=== PATIENT | female | born 1945 | race Caucasian/White ===

== ENCOUNTER → 2016-10-03 | Outpatient (CLI) | payer OTHER, MEDICARE | LOC: MMPC 11:11 | PROVIDERS: ATTEND Nurse Practitioner Family | DX: M54.42 Lumbago with sciatica, left side (principal); G57.30 Lesion of lateral popliteal nerve, unspecified lower limb; J43.2 Centrilobular emphysema | CPT/HCPCS: 99214; G0463 ==

== ENCOUNTER → 2016-11-10 | Outpatient (CLI) | payer OTHER, MEDICARE ==
--- NOTE | 2016-11-13 10:34 | DI ---
AP PELVIS and LEFT HIP, 11/10/2016 9:32 AM: Clinical History: Left hip pain. Previous Exam: 02/26/2012. There is no soft tissue abnormality. The bony structures of the pelvis show an old avulsion fracture of the left parasymphyseal region along the superior margin. This was not evident on the previous christy dy from 02/26/2012. 2 views of the left hip show the patient to be status post revision of the previou s total hip replacement. The prosthetic device articulates normally. There is no evidence of loosenin g of the prosthesis. The patient is also status post total right hip replacement. Readin. Status post total left hip replacement and this is a revision from the previous exam of 02/26/2012 . The prosthetic device articulates normally and there is no evidence of loosening of the prosthetic left hip. 2. There is an old avulsion fracture of the superior aspect of the left parasymphyseal region that w as not evident on the previous study of 02/26/2012.
== END ==
LOC: ORTHO 09:43
PROVIDERS: ATTEND Orthopaedic Surgery
DX: M25.552 Pain in left hip (principal); S32.502A Unspecified fracture of left pubis, initial encounter for closed fracture; Z96.642 Presence of left artificial hip joint
CPT/HCPCS: 73502; 99203; G0463

== ENCOUNTER 2016-11-24 11:50 | Emergency (ER) | payer OTHER, MEDICARE ==
[2016-11-24 12:20] VITALS: RESP 18; TEMP 98.5
[2016-11-24] MEDS: NORMAL SALINE 10 ML SYRINGE FLUSH IVP PRN ×2 (12:25→12:59)
[2016-11-24 12:37] LABS: BASOPHILS # (AUTO) 0 10*3/UL; BASOPHILS % (AUTO) 0 % (0-1); EOSINOPHILS % (AUTO) 0.1 % (0-8); HEMATOCRIT 32.7 % (37.0-47.0); HEMOGLOBIN 10.9 g/dL (12.0-16.0); IMM GRAN % (AUTO) 0.3 % (0-5); IMM GRAN# (AUTO) 0.04 10*3/UL; LYMPHOCYTES % (AUTO) 8.1 % (10-50); MEAN CORPUSCULAR HEMOGLOBIN 32.4 PG (27-31); MEAN CORPUSCULAR HGB CONC 33.3 g/dL (33-37); MEAN PLATELET VOLUME 8.1 FL (7.4-12.2); MONOCYTES # (AUTO) 1.75 10*3/UL (0.3-0.8); MONOCYTES % (AUTO) 12.9 % (5-15); NEUTROPHILS # (AUTO) 10.61 10*3/UL; NEUTROPHILS % (AUTO) 78.6 % (50-80); RDW COEFFICIENT OF VARIATION 13.7 % (11.5-14.5); RED BLOOD COUNT 3.36 10^6/uL (4.20-5.40); WHITE BLOOD COUNT 13.52 10^3/uL (4.8-10.8)
[2016-11-24 12:41] LABS: PLATELET MORPHOLOGY COMMENT NORMAL MORPHOLOGY (NORM)
[2016-11-24 12:52] LABS: ASPARTATE AMINO TRANSFERASE 19 IU/L (8-39); BLOOD UREA NITROGEN 20 mg/dL (7-22); CALCIUM 9.2 mg/dL (8.7-10.7); CHLORIDE 92 meq/L (98-112); CREATININE 0.8 mg/dL (0.50-1.20); EST GLOMERULAR FILTRATION > 60 (>60 ml/min/1.73m(2)); GLUCOSE 103 mg/dL (78-110); POTASSIUM 3.9 meq/L (3.8-5.2); SODIUM 129 meq/L (135-145)
[2016-11-24] MEDS: HYDROmorphone 2 MG/1 ML IVP ONE ×2 (12:58→13:29)
--- NOTE | 2016-11-24 18:34 | PDOC ---
Hip Injury/Pain HPI - General Chief Complaint: Lower Extremity Problem/Injury Stated Complaint: LEFT HIP AND PELVIS PAIN Date Seen by Provider: 11/24/16 Time Seen by Provider: 11:50 Source: POSITIVE: Patient Exam Limitations: POSITIVE: No limitations Nurse's Notes Reviewed & Considered: Yes - History of Present Illness Initial Comments: The patient is a 71-year-old female. She complains of pain to the left hip and left knee for the past 2 weeks. The pain has worsened over the past 2 days. She states that she was diagnosed with "a broken bone in my pelvis"2 weeks ago by her orthopedist. States she injured her left hip when she stepped onto his and even surface and lost her balance, although she did not fall. Patient is had a right hip replacement and 2 left hip replacements. She has a history of tobacco abuse and states she stopped smoking 6 months ago. She has a history of chronic musculoskeletal pain for which she receives fentanyl patches, 75 g every 3 days. She has no paresthesias. No sensory or motor symptoms. She has a wheeled walker at home which she uses to assist in her ambulation and she states she also ambulates with a cane. Have you received a tetanus shot in the past 10 years?: Unknown Location: Left Hip Timing: REPORTS: Gradual Duration: >1 week Severity: Moderate Location at Time of Onset: REPORTS: Home Context: REPORTS: Other (Stumbled but did not fall 2 weeks ago) Concurrent Injuries: DENIES: Neck, Head, Back, Chest, Abdomen, Extremities, Face , Other Quality: REPORTS: "Pain", Sharpness Modifying Factors: REPORTS: Walking Symptoms Prior to Fall: DENIES: Fever, Chills, Diaphoresis, Diaphoresis, Chest Pain, Weakness, Rapid Heart Rate, Nausea, Vomiting, Diarrhea, Dizziness, Light- Headedness, Headache, Seizure, Other Subsequent Symptoms: DENIES: Sensory Loss, Motor Loss, Numbness, Weakness, Bowel / Bladder Problems, Other Similar Symptoms Previously: Yes (as above) Recent Care Received: REPORTS: Denies (Seen by her orthopedist 2 weeks ago and was diagnosed with a "broken bone in my left pelvis"), Recently Seen, Treated by MD Any Prior Injuries Related to Current Complaint?: Yes (as above) - Patient Home Medications Home Medications: Home Medications Calcium Carbonate [Natural Calcium] 600 mg PO BID 01/14/13 Cholecalciferol (Vitamin D3) [Vitamin D-3] 1 cap PO DAILY #0 cap 01/14/13 Fexofenadine HCl 1 tab PO QD 01/14/13 Gabapentin 1 cap PO QHS #30 cap 06/16/16 Meloxicam 1 tab PO DAILY PRN #30 tab 06/16/16 Albuterol/Ipratrop Neb Soln [Duoneb Neb Soln] 1 inh IH TID #90 each 08/23/16 Albuterol Sulfate [Proair Hfa] 1 - 2 puff INH Q4-6H PRN #1 inhaler 10/03/16 Fluticasone Furoate [Arnuity Ellipta] 1 puff INH QD #30 puff 10/03/16 Fentanyl 1 mcg TRANSDERM Q72H #10 patch 11/20/16 HYDROcodone/APAP 5/325 Tab [[place] 5/325 Tab] 1 each PO Q6H PRN #25 tablet LORazepam Tab [Ativan Tab] 1 mg PO Q6H PRN #25 tablet 11/24/16 - Patient Allergies Allergies/Adverse Reactions: Allergies Allergy/AdvReac Type Severity Reaction Status Date / Time Penicillins Allergy Severe Anaphylaxis Verified 11/24/16 11:54 Sulfa (Sulfonamide Allergy Intermediate RASH Verified 11/24/16 11:54 Antibiotics) alendronate sodium AdvReac Intermediate NOT Verified 11/24/16 11:54 [From Fosamax] APPLICABLE Past Medical History - heen HEENT History: Dentures/Partials, Other (please comment) Additional HEENT History: WEARS GLASSES Cardiovascular History: Denies History Respiratory History: COPD, Snoring Additional Respiratory History: QUIT SMOKING 06/2016 Gastrointestinal History: Denies History Genitourinary History: Denies History Endocrine History: Denies History Musculoskeletal History: Arthritis, Osteoporosis, Back Pain, Other (please comment) Prosthesis or Implant: Yes (RIGHT HIP HARDWARE) Additional Musculoskeletal History: CHRONIC LEFT HIP PAIN. L PELVIC FRACTURE Neurological History: Migraines Blood Disorders: Denies History Psychiatric History: Depression History of Sexually Transmitted Diseases: No Cancer History: Denies History In Past Year Been Physically Harmed or Verbally Threatened: No History of MDRO: No History of Other Communicable Diseases: No Tobacco Use: Former Smoker Alcohol Use: Rarely Substance Use Type: None Previous Surgical History: Yes Type / Date of Surgery: LEFT HIP SURGERY X2, RIGHT HIP REPLACEMENT, LEFT FOOT SURGERY, FULL HYSTERECTOMY Anesthesia Reactions: No Malignant Hyperthermia: No Significant Family History: No pertinent family hx Past Medical History Reviewed: Reviewed - No Changes ROS - Limitations ROS Limitations: No Limitations Constitution: REPORTS: Denies Symptoms Cardiovascular: REPORTS: Denies Cardiac Symptoms Respiratory: REPORTS: Denies Resp Symptoms Neurological: REPORTS: Denies Neuro Symptoms Gastrointestinal: REPORTS: Denies GI Symptoms Endocrine: REPORTS: Denies Symptoms Musculoskeletal: REPORTS: Joint Pain (Left hip and left knee), Recent Injury ( As above) Genitourinary: REPORTS: Denies Symptoms Eyes: REPORTS: Denies Symptoms ENT: REPORTS: Denies Symptoms Skin: REPORTS: Denies Skin Symptoms Lympathic: REPORTS: Denies Lympathic Symptoms Immunologic: POSITIVE: Denies Symptoms Psychiatric: POSITIVE: Anxiety Hip Injury / Pain Exam - General Appearance General Appearance: POSITIVE: Alert, Cooperative, Anxious (Very anxious), Moderate Distress - Lower Extremity Extremities: POSITIVE: Normal ROM, No Pedal Edema, No Obvious Injury to Knee, No Deformity to Knee, Normal Tendon Exam, Hip Pain on Leg Movement (Left), Hip/ Knee Tenderness (Some tenderness on direct palpation anterior aspect of left hip and anterior aspect of left knee). NEGATIVE: Shortening of Leg, External Rotation of Leg, Pedal Edema, Ecchymosis, Erythema, Soft Tissue Injury, Positive Chantel's Sign - HEENT HEENT: POSITIVE: Head Inspection Nml, Eyes Inspection Nml, Ears Inspection Nml, Nose Inspection Nml, Oral/Dental Inspect. Nml, Pharynx Inspect. Nml, PERRL, EOMI - Neck/Back Neck: POSITIVE: Normal Inspection, Non-Tender Back: POSITIVE: Normal Inspection, No CVA Tenderness, Non Tender, Painless ROM, No Vertebral Tenderness - Respiratory / CVS Cardiovascular: POSITIVE: Regular Rate and Rhythm, Heart Sounds Normal, Equal Pulses, Strong Pulses, No Murmur, No Gallop, No JVD, No Pulse Deficit Respiratory: POSITIVE: Chest Non Tender, No Ecchymosis, Breath Sounds Normal, No Respiratory Distress Peripheral Pulses: Radial (R): 2+, Radial (L): 2+, Dorsalis-pedis (R): 2+, Dorsalis-pedis (L): 2+ - Abdomen Abdomen: Soft: (All Quadrants), Normal Bowel Sounds: (All Quadrants), Denies Tenderness: (All Quadrants), No Splenomegaly: (All Quadrants), No Hepatomegaly: (All Quadrants), No Guarding: (All Quadrants), No Rebound: (All Quadrants), No Palpable Pulse: (All Quadrants), No Palpabale Mass: (All Quadrants), No Distention: (All Quadrants), No Rigidity: (All Quadrants) - Skin Skin: POSITIVE: Color Normal, No Rash, Warm, Dry, Normal Palpation - Neuro/Psych Neuro / Psych: POSITIVE: Oriented x 3, Neuro Grossly Intact, Mood Appropriate, Affect Appropriate Images - Complete Complete: 1 - Discomfort on palpation 2 - Discomfort on palpation Hip Injury / Pain Progress - Results Reviewed by me Xrays/CTs/US Reviewed by me: Yes Discussed with Radiologist: Yes Radiology Findings: Diffuse osteoporosis. X-ray of left knee normal. CT scan without contrast of left hip shows a left parasymphyseal fracture with some associated hematoma. There may also be a fracture of the sacral wing on the right Lab Results Reviewed: Yes Lab Results:: Laboratory Results 11/24/16 11/24/16 Range/Units 12:25 12:33 WBC 13.52 H (4.8-10.8) 10^3/uL RBC 3.36 L (4.20-5.40) 10^6/uL Hgb 10.9 L (12.0-16.0) g/dL Hct 32.7 L (37.0-47.0) % MCV 97.3 (81-99) FL MCH 32.4 H (27-31) PG MCHC 33.3 (33-37) g/dL RDW Std Deviation 46.5 (39-50) fL RDW Coeff of El 13.7 (11.5-14.5) % Plt Count 245 (140-350) 10*3/uL MPV 8.1 (7.4-12.2) FL Immature Gran % (Auto) 0.3 (0-5) % Neut % (Auto) 78.6 (50-80) % Lymph % (Auto) 8.1 L (10-50) % Harris % (Auto) 12.9 (5-15) % Eos % (Auto) 0.1 (0-8) % Baso % (Auto) 0 (0-1) % Immature Gran # (Auto) 0.04 10*3/UL Neut # (Auto) 10.61 10*3/UL Lymph # (Auto) 1.10 10*3/uL Harris # (Auto) 1.75 H (0.3-0.8) 10*3/UL Eos # (Auto) 0.02 10*3/UL Baso # (Auto) 0 10*3/UL WBC Morphology Comment Normal morphology (NORM) Plt Morphology Comment Normal morphology (NORM) RBC Morph Comment Normal morphology (NORM) D-Dimer 0.58 (0.00-0.59) mg/L Sodium 129 L (135-145) meq/L Potassium 3.9 (3.8-5.2) meq/L Chloride 92 L (98-112) meq/L Carbon Dioxide 25 (23-33) meq/L Anion Gap 12 (5-20) BUN 20 (7-22) mg/dL Creatinine 0.8 (0.50-1.20) mg/dL Estimated GFR > 60 (>60 ml/min/1.73m(2)) BUN/Creatinine Ratio 25.00 H (6-20) Glucose 103 (78-110) mg/dL Calculated Osmolality 270.0 (267-292) mOsm/kg Calcium 9.2 (8.7-10.7) mg/dL Total Bilirubin 1.0 (0.3-1.2) mg/dL AST 19 (8-39) IU/L ALT 22 (9-52) IU/L Alkaline Phosphatase 107 (38-126) IU/L Total Creatine Kinase 64 (30-136) IU/L C-Reactive Protein 24.0 H (0.0-0.9) mg/dL Total Protein 7.0 (6.1-8.0) g/dL Albumin 4.0 (3.5-4.8) g/dL Globulin 3.0 (2.50-4.10) g/dL Albumin/Globulin Ratio 1.30 (1.3-2.0) mg/g - Patient's Progress Pain Medication Addressed: POSITIVE: Yes (Patient given 2 mg of Dilaudid IV in the emergency room with good effect. Patient discharged on hydrocodone/APAP, one every 6 hours and Ativan one every 6 hours as necessary for anxiety) School/Work Release Addressed: POSITIVE: Yes (Patient advised that she probably will not be able to return to work for several weeks) Re-Examine Time: 14:57 Re-Examine Comment: Patient able to bear weight but gait is antalgic Status: POSITIVE: Unchanged, Re-Examined - Consult Counseled: POSITIVE: Patient, Family, RE: Lab Results, RE: Radiology Results, RE : DX, RE: Need for F/U Patient Care Time - Estimated PCT Patient Care Time (In Minutes): 45 Vital Signs - Recent Vital Signs Vital Signs: Vital Signs (Last 8 hours) Temp Pulse Resp BP Pulse Ox 11/24/16 12:08 98.5 F 93 18 152/89 92 - VS Reviewed Vital Signs Reviewed: Yes Discharge Clinical Impression: Pubic ramus fracture, Anxiety Discharge Disposition: Discharged to Home Condition: Fair Prescriptions / Orders: LORazepam Tab [Ativan Tab] 1 mg PO Q6H PRN #25 tablet PRN Reason: Anxiety HYDROcodone/APAP 5/325 Tab [[place] 5/325 Tab] 1 each PO Q6H PRN #25 tablet PRN Reason: Pain Patient Instructions Given at Discharge: Pelvic Avulsion Fractures in Adults ( ED), Osteoporosis (ED), Anxiety (ED) Additional Instructions: You have a fracture of your pelvic bone on the left near structure known as the symphysis pubis. This is a painful injury, but it does not require any surgery. It takes a long time to heal, especially in a woman with thinning of the bones (osteoporosis), such as yourself. In addition to your fentanyl patch which she will apply every 72 hours, you can augment this with hydrocodone, one every 6 hours, as necessary for pain. I believe you also have an underlying anxiety disorder, which is exacerbated by your present injury. Try Ativan, one every 6 hours as necessary for anxiety. I'm glad you have stop smoking and please do not resume this habit. Weightbearing as tolerated. Use your wheeled walker and cane as necessary. Follow-up with your orthopedist. Return here anytime if condition worsens. Follow Up With: LUANA DIAZ [Primary Care Provider] - (Instructions as above. Follow-up with your orthopedist. Return here anytime if condition worsens.)
--- NOTE | 2016-11-24 22:47 | DI ---
LEFT KNEE, 11/24/2016 1:31 PM: Clinical History: Left knee pain. Previous Exam: None at this facility. 2 views are submitted. The patient could not flex her knee for the sunrise projection. There is no ac false pass soft tissue, osseous, or joint abnormality. There is osteoporosis. Readin. Normal left knee exam. 2. Osteoporosis.
--- NOTE | 2016-11-25 11:42 | DI ---
CT PELVIS SCAN WITHOUT IV CONTRAST, 11/24/2016 12:20 PM : Clinical History: Left hip pain. Status post bilateral total hip replacements. Previous Exam: None at this facility. Scans are performed from just superior to the umbilicus to the inferior margin of the each prosthetic femoral shank without IV contrast. Sagittal and coronal images are generated both with bone enhancem ent and soft tissue algorithms. Scans through the lower abdomen and pelvis show no masses or abnormal fluid collections. There is no adenopathy. There is a comminuted left parasymphyseal fracture that probably is subacute. Just lateral to the lef t inferior pubic ramus is a soft tissue mass with some high density material within it. This high den sity material is probably bone. The mass is contiguous with the fracture site and this may represent a hematoma that is undergoing organization. It measures approximately 30 x 30 x 70 mm and is located superficial to the tarring machine operator internus muscle and may actually arise from the adductor neno muscle. B oth hip prostheses articulate normally and there is no evidence of loosening of the prosthetic device . There is a fracture involving the right first and second sacral ala near the sacroiliac joint. Ther e is sclerosis indicating this is a subacute fracture probably several weeks old. There is no diastas es of the SI joint. There is diffuse osteoporosis. READIN. There are subacute fractures of the right sacral wing at S1 and S2 as well as the left parasymphy seal region. 2. There is a 30 x 30 x 70 soft tissue mass located in proximity to the obturator internus muscle an d the adductor Neno muscle. Within this mass are some calcific densities in this probably represent s an organizing hematoma with some developing heterotopic bone formation. 3. Both prosthetic devices articulate normally and show no evidence of loosening. 4. Severe osteoporosis.
== END 2016-11-24 15:25 | disposition home or self-care (01) ==
LOC: ER 11:50
DX: S32.592D Other specified fracture of left pubis, subsequent encounter for fracture with routine healing (principal); M25.552 Pain in left hip; M25.562 Pain in left knee
CPT/HCPCS: 36415; 72192; 73560; 80053; 82550; 85025; 85379; 86140; 96374; 96376; 99283; J1170

== ENCOUNTER → 2016-11-27 | Outpatient (CLI) | payer OTHER, MEDICARE | LOC: MMPC 10:00 | PROVIDERS: ATTEND Orthopaedic Surgery | DX: S32.10XA Unspecified fracture of sacrum, initial encounter for closed fracture (principal); S32.592D Other specified fracture of left pubis, subsequent encounter for fracture with routine healing; M25.552 Pain in left hip; Z96.642 Presence of left artificial hip joint | CPT/HCPCS: 99213; G0463 ==

== ENCOUNTER → 2016-12-25 | Outpatient (CLI) | payer OTHER, MEDICARE ==
--- NOTE | 2016-12-25 12:06 | DI ---
AP PELVIS, 12/25/2016 11:20 AM : Clinical History: Closed fracture of the left side of the symphysis pubis. Previous Exam: V CT scan of the pelvis from 11/24/2016; and an AP pelvis and left hip exam from 017. Since the previous exam, avulsion fractures have developed at the origins of the adductor longus and brevis muscles in the adductor Hamilton muscle on the left side. At the site of the original fracture along the superior margin of the left side of the symphysis pubis, more reabsorption of bone has deve loped with little new bone formation. A new fracture may have even developed between the junction of the superior and inferior pubic rami at the symphysis pubis. Marked sclerosis has developed in the ri ght sacral wing at the site of previously noted fractures. There has been no change in the appearance of the old right inferior pubic ramus fracture. No other new pelvic fracture is identified. The AP p rojection of the visualized portions of each prosthetic joint are unremarkable and unchanged. Readin. There is a combination of reabsorption of bone along the medial margin of the left side of the sy mphysis pubis especially in the region of the fracture noted previously along the superior aspect, as well as avulsion fractures along the inferior margin of the left inferior pubic ramus at the sites o f the origins of the adductor muscles. This would imply that there is substantial motion at the symph ysis pubis with diastases of the symphysis pubis. 2. There has been progressive healing of the fractures involving the right sacral wing.
== END ==
LOC: ORTHO 11:28
PROVIDERS: ATTEND Orthopaedic Surgery
DX: S32.502D Unspecified fracture of left pubis, subsequent encounter for fracture with routine healing (principal)
CPT/HCPCS: 72170

== ENCOUNTER → 2017-01-01 | Outpatient (CLI) | payer OTHER, MEDICARE ==
--- NOTE | 2017-01-01 12:59 | DI ---
CT BONE DENSITOMETRY OF THE SPINE AND HIP, 01/01/2017 11:42 AM : Clinical History: Closed fracture of the sacrum with routine healing. Parasymphyseal fracture of the pelvis. Previous Exam: 10/02/2005; 11/18/2009. 3D Quantitative CT (QCT) Bone Mineral Densitometry: The [place] scans are normal. Low dose scans are sampled through the midbodies of L1 and L2. Average bone mineral density (BMD) is 90.8 mg/mL corresponding to a volumetric T-score of -3.0 and Z-score of 0.1. The [employer]'s (ACR) volumetric QCT BMD conversion table categorizes this patient as having osteopenia of the lumbar spine. Previous scans gave bone mineral density values of 85.7 and 88.9 mg per mL. There is a 20 mm low-density lesion in the left lobe of the liver at that spencer s a Hounsfield unit measurement of 1.2 indicating this is a cyst of the left lobe of the liver. CT X-Ray Absorptiometry (CTXA) Bone Mineral Densitometry of the Left Hip: This examination is not performed because the patient has bilateral prosthetic hips. The cash management clerk view s hows diastases of the symphysis pubis with an avulsion fracture of the left parasymphyseal region. READIN. The QCT lumbar spine BMD value by ACR's 3D volumetric to 2D areal conversion categorizes this pat ient as having osteopenia of the lumbar spine. The QCT spine T-score is -3.0, indicating osteoporosis . The presence of the sacral and left parasymphyseal fragility fractures indicates this patient by de finition has severe osteoporosis. 2. There is diastases at the symphysis pubis. 3. The patient has bilateral prosthetic hips precluding bone mineral density analysis of the hips. 4. Incidental finding of a 20 mm water density cyst of the left lobe of the liver.
== END ==
LOC: CT 11:34
PROVIDERS: ATTEND Nurse Practitioner Family
DX: S32.502D Unspecified fracture of left pubis, subsequent encounter for fracture with routine healing (principal); S32.10XD Unspecified fracture of sacrum, subsequent encounter for fracture with routine healing
CPT/HCPCS: 77078

== ENCOUNTER → 2017-01-02 | Outpatient (CLI) | payer OTHER, MEDICARE ==
[2017-01-02 07:28] LABS: BASOPHILS # (AUTO) 0.02 10*3/UL; BASOPHILS % (AUTO) 0.3 % (0-1); EOSINOPHILS # (AUTO) 0.25 10*3/UL; EOSINOPHILS % (AUTO) 3.2 % (0-8); HEMATOCRIT 32.7 % (37.0-47.0); HEMOGLOBIN 10.5 g/dL (12.0-16.0); LYMPHOCYTES # (AUTO) 1.41 10*3/uL; MEAN CORPUSCULAR HEMOGLOBIN 30.7 PG (27-31); MEAN CORPUSCULAR HGB CONC 32.1 g/dL (33-37); MEAN CORPUSCULAR VOLUME 95.6 FL (81-99); MEAN PLATELET VOLUME 7.5 FL (7.4-12.2); MONOCYTES # (AUTO) 0.38 10*3/UL (0.3-0.8); MONOCYTES % (AUTO) 4.8 % (5-15); NEUTROPHILS # (AUTO) 5.83 10*3/UL; NEUTROPHILS % (AUTO) 73.8 % (50-80); RED BLOOD COUNT 3.42 10^6/uL (4.20-5.40)
[2017-01-02 07:38] LABS: PLATELET MORPHOLOGY COMMENT NORMAL MORPHOLOGY (NORM); RBC MORPHOLOGY COMMENT NORMAL MORPHOLOGY (NORM); WBC MORPHOLOGY COMMENT NORMAL MORPHOLOGY (NORM)
[2017-01-02 08:05] LABS: BLOOD UREA NITROGEN 12 mg/dL (7-22); CALCIUM 9.6 mg/dL (8.7-10.7); EST GLOMERULAR FILTRATION > 60 (>60 ml/min/1.73m(2)); SERUM ALBUMIN 3.9 g/dL (3.5-4.8)
[2017-01-02 08:05] LABS: MAGNESIUM 1.9 mg/dL (1.6-2.4); PHOSPHORUS 4.8 mg/dl (2.4-4.3)
[2017-01-03 10:56] LABS: A/G RATIO 0.88 (()); ALB PEP SER 3.2 g/dL (3.4-4.7); ALP1 GLOB 0.4 g/dL (0.1-0.3); ALP2 GLOB 1.4 g/dL (0.6-1.0); GAMMA GLOBS 0.9 g/dL (0.6-1.6)
== END ==
LOC: LAB 07:11
PROVIDERS: ATTEND Nurse Practitioner Family
DX: D64.9 Anemia, unspecified (principal); M81.0 Age-related osteoporosis without current pathological fracture; S32.10XD Unspecified fracture of sacrum, subsequent encounter for fracture with routine healing; S32.502D Unspecified fracture of left pubis, subsequent encounter for fracture with routine healing
CPT/HCPCS: 36415; 80053; 82306; 82330; 83735; 83970; 84100; 84155; 84165; 84443; 85025; 85652; 99214

== ENCOUNTER → 2017-01-11 | Outpatient (CLI) | payer OTHER, MEDICARE | LOC: MMPC 11:11 | PROVIDERS: ATTEND Surgery | DX: D64.9 Anemia, unspecified (principal) | CPT/HCPCS: 99202 ==

== ENCOUNTER → 2017-01-12 | Outpatient (CLI) | payer OTHER, MEDICARE | LOC: MMPC 09:00 | PROVIDERS: ATTEND Nurse Practitioner Family | DX: M81.0 Age-related osteoporosis without current pathological fracture (principal) | CPT/HCPCS: G0463; J0897 ==

== ENCOUNTER → 2017-01-19 | Outpatient (CLI) | payer OTHER, MEDICARE ==
--- NOTE | 2017-01-19 11:14 | DI ---
CT ABDOMEN W/O CONTRAST,01/19/2017 8:54 AM: Clinical History: Unspecified iron deficiency anemia. Previous Exam: CT bone density performed January 01, 2017 Findings: Multiple helically acquired CT images are obtained through the abdomen following the oral administrat ion of contrast. Skeletal structures are unremarkable and stable from the prior exam. There is mild hepatomegaly. There is a stable 13 mm left renal hyperdensity likely representing a hyperdense cyst. There is no lymphadenopathy. The stomach is not well evaluated as it is decompressed. Skeletal structures are unremarkable. There is no mesenteric or retroperitoneal lymphadenopathy. A few vascular calcifications are seen. Small bowel signature is preserved. Impression: No acute intra-abdominal pathology. 13 mm hyperdense left renal cyst. This was seen on the prior exam.
--- NOTE | 2017-01-19 15:22 | DI ---
CT CHEST W/O CONTRAST,01/19/2017 8:54 AM: Clinical History: History of tobacco abuse Previous Exam: June 12, 2013 Findings: Multiple helically acquired CT images are obtained through the chest without contrast. There is diffu se COPD. There is some mild scarring within the lingula. Mild diffuse degenerative changes are seen. Coronary artery calcifications and peripheral vascular ca lcifications are seen. Mild diffuse degenerative changes of the spine are noted. The upper abdomen is unremarkable. Skeletal structures are also unremarkable. Impression: 1. Diffuse COPD. 2. No evidence of mass.
== END ==
LOC: CT 08:50
PROVIDERS: ATTEND Nurse Practitioner Family
DX: D50.9 Iron deficiency anemia, unspecified (principal); J44.9 Chronic obstructive pulmonary disease, unspecified; Z87.891 Personal history of nicotine dependence
CPT/HCPCS: 71250; 74150

== ENCOUNTER → 2017-01-22 | Outpatient (CLI) | payer OTHER, MEDICARE ==
--- NOTE | 2017-01-23 10:15 | DI ---
XR PELVIS 1-2VW,01/22/2017 1:46 PM: Clinical History: Fracture of the sacrum with routine healing Previous Exam: December 25, 2016 Findings: A single frontal radiograph of the pelvis is obtained, and demonstrates stable postsurgical changes c onsistent with bilateral total hip arthroplasty. There is some stable diastases of the symphysis pubis. There is also angulation of the left obturator relative to the right. There is no additional bony erosion identified from the prior exam. Impression: No significant change from prior.
== END ==
LOC: ORTHO 13:53
PROVIDERS: ATTEND Orthopaedic Surgery
DX: S32.10XD Unspecified fracture of sacrum, subsequent encounter for fracture with routine healing (principal)
CPT/HCPCS: 72170

== ENCOUNTER → 2017-02-08 | Outpatient (CLI) | payer OTHER, MEDICARE | LOC: MMPC 11:11 | PROVIDERS: ATTEND Surgery | DX: D64.9 Anemia, unspecified (principal) | CPT/HCPCS: 99213; G0463 ==

== ENCOUNTER → 2017-03-05 | Outpatient (CLI) | payer OTHER, MEDICARE ==
--- NOTE | 2017-03-06 09:07 | DI ---
XR PELVIS 1-2VW,03/05/2017 1:13 PM: Clinical History: A fracture of the symphysis pubis. Previous Exam: January 2017, December 25, [address] from November 24, 2016 Findings: A single frontal view of the pelvis is obtained, and demonstrate some stable diastases and rotary dis placement of the left pubis. There has been some increasing sclerosis and new bone formation involvin g the symphysis pubis. There is some vacuum phenomenon within the sacroiliac joints and some degenerative changes of the low er lumbar spine. Impression: Increasing sclerosis of the symphysis pubis consistent with a healing fracture.
== END ==
LOC: ORTHO 13:23
PROVIDERS: ATTEND Orthopaedic Surgery
DX: S32.592D Other specified fracture of left pubis, subsequent encounter for fracture with routine healing (principal)
CPT/HCPCS: 72170

== ENCOUNTER → 2017-04-02 | Outpatient (CLI) | payer OTHER, MEDICARE | LOC: MMPC 09:00 | PROVIDERS: ATTEND Nurse Practitioner Family | DX: J43.2 Centrilobular emphysema (principal); G57.30 Lesion of lateral popliteal nerve, unspecified lower limb; M54.42 Lumbago with sciatica, left side | CPT/HCPCS: 99214; G0463 ==

== ENCOUNTER → 2017-04-03 | Outpatient (CLI) | payer OTHER, MEDICARE ==
[2017-04-03 10:34] LABS: HEMATOCRIT 34.8 % (37.0-47.0); HEMOGLOBIN 11.3 g/dL (12.0-16.0); MEAN CORPUSCULAR HEMOGLOBIN 29.8 PG (27-31); MEAN CORPUSCULAR HGB CONC 32.5 g/dL (33-37); MEAN CORPUSCULAR VOLUME 91.8 FL (81-99); MEAN PLATELET VOLUME 8.4 FL (7.4-12.2); RED BLOOD COUNT 3.79 10^6/uL (4.20-5.40)
== END ==
LOC: MOB LAB 09:34
PROVIDERS: ATTEND Nurse Practitioner Family
DX: D64.9 Anemia, unspecified (principal)
CPT/HCPCS: 36415; 85027

== ENCOUNTER 2017-12-21 12:57 | Inpatient (IN) ==
--- NOTE | 2017-12-21 13:15 | PDOC ---
Dyspnea HPI - General Chief Complaint: Dyspnea Stated Complaint: DYSP Date Seen by Provider: 12/21/17 Time Seen by Provider: 13:04 Source: POSITIVE: Patient Exam Limitations: POSITIVE: No limitations Treatment Prior to Arrival: REPORTS: None Nurse's Notes Reviewed & Considered: Yes - History of Present Illness Initial Comments: This is a well-developed, well-nourished, 72-year-old female with shortness of breath. Patient has complaints of headache, mild sore throat, shortness of breath that have been ongoing and getting worse. She saw her primary care provider this morning who directed her to the emergency room for evaluation of pneumonia versus COPD. reports that if he has to wake her up in the night, to get her up in the morning, he has to turn her oxygen up for a while in order to awaken her. Body Location Affected: REPORTS: Head, Chest Timing: REPORTS: Gradual Duration: Other (Approximately one month) Severity: Severe Initiating Event: REPORTS: Upper Respiratory Illness Context: REPORTS: Activity Exacerbated By: REPORTS: Exertion, Coughing Associated Symptoms: REPORTS: Chest Discomfort, Chest Tightness, Productive Cough, Ankle Swelling Similar Symptoms Previously: No Recently seen/treated/hospitalized: No Any Prior Injuries Related to Current Complaint?: No - Patient Home Medications Home Medications: Home Medications Calcium Carbonate [Natural Calcium] 600 mg PO BID 01/14/13 Cholecalciferol (Vitamin D3) [Vitamin D3] 1 cap PO DAILY #0 cap 01/14/13 Fluticasone Furoate [Arnuity Ellipta] 1 puff INH QD #30 puff 10/03/16 LORazepam Tab [Ativan Tab] 1 mg PO Q6H PRN #25 tab 11/24/16 albuterol sulfate HFA 90 mcg/actuation aerosol inhaler 1 - 2 puff INH Q4-6H PRN #1 inhaler 06/28/17 gabapentin 300 mg capsule 300 mg PO QHS #30 cap 06/28/17 polysaccharide iron complex 150 mg iron capsule 150 mg PO BID #60 cap 06/28/17 fexofenadine 180 mg tablet 180 mg PO QD tab 07/13/17 ipratropium-albuterol 0.5 mg-3 mg(2.5 mg base)/3 mL nebulization soln 3 ml INH QID #90 ea 10/04/17 fentanyl 75 mcg/hr transdermal patch 75 mcg TRANSDERM Q72H #10 patch 12/05/17 meloxicam 15 mg tablet 15 mg PO QDAY PRN #30 tab 12/19/17 Doxycycline Hyclate 100 mg PO Q12H #14 cap 12/22/17 Naloxone Inj [Narcan Inj] 0.4 mg IM ONCE PRN #1 vial 12/22/17 Prednisone 40 mg PO DAILY #10 tab 12/22/17 - Patient Allergies Allergies/Adverse Reactions: Allergies 3 Allergy/AdvReac Type Severity Reaction Status Date / Time Penicillins Allergy Severe Anaphylaxis Verified 12/21/17 17:33 Sulfa (Sulfonamide Allergy Intermediate RASH Verified 12/21/17 17:33 Antibiotics) alendronate sodium AdvReac Intermediate NOT Verified 12/21/17 17:33 [From Fosamax] APPLICABLE Past Medical History - heen HEENT History: Dentures/Partials, Other (please comment) Additional HEENT History: WEARS GLASSES Cardiovascular History: Denies History Respiratory History: COPD, Snoring Additional Respiratory History: QUIT SMOKING 06/2016 Gastrointestinal History: Denies History Genitourinary History: Denies History Endocrine History: Denies History Musculoskeletal History: Arthritis, Osteoporosis, Back Pain, Other (please comment) Prosthesis or Implant: Yes (RIGHT HIP HARDWARE) Additional Musculoskeletal History: CHRONIC LEFT HIP PAIN. L PELVIC FRACTURE Neurological History: Migraines Blood Disorders: Denies History Psychiatric History: Depression History of Sexually Transmitted Diseases: No Cancer History: Denies History History of MDRO: No History of Other Communicable Diseases: No Alcohol Use: Rarely In the Past 12 Months, Have Used or Abuse Any Substance: None Previous Surgical History: Yes Type / Date of Surgery: LEFT HIP SURGERY X2, RIGHT HIP REPLACEMENT, LEFT FOOT SURGERY, FULL HYSTERECTOMY Anesthesia Reactions: No Malignant Hyperthermia: No Significant Family History: No pertinent family hx ROS - Limitations ROS Limitations: No Limitations Constitution: REPORTS: Diaphoresis Cardiovascular: REPORTS: Chest Pain Respiratory: REPORTS: Cough Productive, Shortness Of Breath, Wheezing Neurological: REPORTS: Headache Gastrointestinal: REPORTS: Denies GI Symptoms Endocrine: REPORTS: Denies Symptoms Musculoskeletal: REPORTS: Muscle Aches Genitourinary: REPORTS: Denies Symptoms Eyes: REPORTS: Denies Symptoms ENT: REPORTS: Nasal Drainage, Sore Throat Skin: REPORTS: Denies Skin Symptoms Lympathic: REPORTS: Denies Lympathic Symptoms Immunologic: POSITIVE: Denies Symptoms Psychiatric: POSITIVE: Denies Psych Symptoms Dyspnea Physical Exam - General Appearance General Appearance: REPORTS: Alert, Cooperative, No Acute Distress, No Evidence of Trauma - HEENT HEENT: POSITIVE: Head Inspection Nml, Eyes Inspection Nml, Ears Inspection Nml, Nose Inspection Nml, Oral/Dental Inspect. Nml, Pharynx Inspect. Nml, PERRL, EOMI - Neck Neck: REPORTS: Normal Inspection - Respiratory Respiratory: REPORTS: No Respiratory Distress, No Pleuritic Chest Pain, Speaks Full Sentences, No Pain on Inspiration, Decreased Air Movement - Cardiovascular Cardiovascular: REPORTS: Regular Rate and Rhythm, Heart Sounds Normal, No Murmur , No Gallop, No Friction Rub, No JVD - Abdomen Abdomen: Soft: (All Quadrants), Normal Bowel Sounds: (All Quadrants), Denies Tenderness: (All Quadrants), No Splenomegaly: (All Quadrants), No Hepatomegaly: (All Quadrants), No Guarding: (All Quadrants), No Rebound: (All Quadrants), No Palpable Pulse: (All Quadrants), No Palpabale Mass: (All Quadrants), No Distention: (All Quadrants), No Rigidity: (All Quadrants) - Skin Skin: REPORTS: Intact, Normal For Race, Warm, Dry, No Rash - Extremities Extremity: Non-Tender: (All Extremities), Normal ROM: (All Extremities), Normal Inspection: (All Extremities), Pelvis Stable: (All Extremities) - Neurological / Psychological Neurological: POSITIVE: Affect Apporpriate, Oriented X3, Motor Normal, Sensation Normal Dyspnea Progress - Results Reviewed by me Xrays/CTs/US Reviewed by me: Yes Discussed with Radiologist: Yes Lab Results Reviewed by Me: Yes CBC and BMP: 12/22/17 04:32 12/22/17 04:32 EKG Interpretation:: POSITIVE: Normal Sinus Rhythm - Patient's Progress Re-Examine Time: 16:11 Status: POSITIVE: Improved MDM / ED Course: Patient was evaluated, an IV started, blood drawn and sent to lab for study, a graphic and EKG studies were obtained. Findings: CT scan shows no pulmonary embolism present, there is large bullous emphysema present, no focal pneumonias and noted. CBC shows a normal white count, CMP is unremarkable, troponin and CK-MB are normal, d-dimer is elevated. influenza, strep swab, and mycoplasma are negative. Assessment: Shortness of breath, likely related to COPD. Plan: Admission. Air Movement: POSITIVE: Fair Quality Measure Initiative: CP/AMI: POSITIVE: EKG Quality Measure Initiative: CAP: POSITIVE: CXR or CT - Consult Consult (If Yes, Name of Consulting MD & Time Called): Yes (Dr. Adame, 1610 hrs) Consulting MD will see pt:: [place] [facility] [place] Counseled: POSITIVE: Patient, Family, RE: Lab Results, RE: Radiology Results, RE : DX, RE: Need for F/U Patient Care Time - Estimated PCT Patient Care Time (In Minutes): 45 Vital Signs - VS Reviewed Vital Signs Reviewed: Yes Discharge Clinical Impression: Hypoxia, COPD (chronic obstructive pulmonary disease) Discharge Disposition: Admit to Inpatient Condition: Good Date Decision to Admit to Inpatient: 12/21/17 Time Decision to Admit to Inpatient: 16:09
[2017-12-21] MEDS ORDERED: KETOROLAC 15 MG/1 ML VIAL IVP ONE (13:17)
[2017-12-21] MEDS ORDERED: Sodium Chloride 0.9% 1,000 ML PRIMARY IV ONE (13:17)
[2017-12-21] MEDS ORDERED: IPRATROPIUM/ALBUTEROL SULFATE 3 ML NEB NEB ONE (13:17)
[2017-12-21] MEDS ORDERED: ONDANSETRON 4 MG/2 ML VIAL IVP ONE (13:17)
[2017-12-21 13:25] LABS: BASOPHILS # (AUTO) 0.03 10*3/UL; BASOPHILS % (AUTO) 0.4 % (0-1); EOSINOPHILS # (AUTO) 1.19 10*3/UL; EOSINOPHILS % (AUTO) 14.4 % (0-8); Hematocrit [HCT] 38.6 % (37.0-47.0); Hemoglobin [HGB] 12.5 g/dL (12.0-16.0); LYMPHOCYTES # (AUTO) 1.61 10*3/uL; MEAN CORPUSCULAR HEMOGLOBIN 31.3 PG (27-31); MEAN CORPUSCULAR HGB CONC 32.4 g/dL (33-37); MEAN CORPUSCULAR VOLUME 96.5 FL (81-99); MEAN PLATELET VOLUME 8.4 FL (7.4-12.2); MONOCYTES # (AUTO) 0.76 10*3/UL (0.3-0.8); MONOCYTES % (AUTO) 9.2 % (5-15); NEUTROPHILS # (AUTO) 4.67 10*3/UL; NEUTROPHILS % (AUTO) 56.5 % (50-80)
[2017-12-21 13:28] LABS: PLATELET MORPHOLOGY COMMENT NORMAL MORPHOLOGY (NORM); RBC MORPHOLOGY COMMENT NORMAL MORPHOLOGY (NORM); WBC MORPHOLOGY COMMENT NORMAL MORPHOLOGY (NORM)
[2017-12-21 13:33] LABS: BLOOD UREA NITROGEN 15 mg/dL (7-22); BUN/CREATININE RATIO 18.75 (6-20); SERUM ALBUMIN 4.6 g/dL (3.5-4.8)
[2017-12-21 14:20] LABS: VENOUS PH 7.36 (7.32-7.42)
--- NOTE | 2017-12-21 15:36 | DI ---
CT ANGIOGRAM OF THE CHEST, 12/21/2017 1:17 PM : Clinical History: Shortness of breath. Chest pain. Previous Exam: 01/19/2017. Scans are performed from the base of the neck to the lower lung bases following IV administration of 65 mL of Isovue 300. Proprietary automated bolus tracking software was not used to verify the timing of the injection. The base of the neck and thoracic inlet are normal. There are no abnormal axillary, supraclavicular, mediastinal, or hilar nodes. The heart is normal. There is no evidence of pulmonary emboli or pulmona ry embolism with infarction. There is pulmonary arterial hypertension. The aorta is normal. There is no acute infiltrate or effusion. Bullae are present throughout the entire lungs indicating bullous em physema. Both internal glands, the spleen, and the visualized portions of the pancreas and liver are normal. READIN. There is no evidence of pulmonary emboli or pulmonary embolism with infarction. 2. Bullous emphysema with pulmonary arterial hypertension.
[2017-12-21] MEDS ORDERED: FLUTICASONE/SALMETEROL 250/50 UD INHALER INH ONE (15:43)
[2017-12-21] MEDS ORDERED: DEXAMETHASONE PF 10 MG/1 ML VIAL IVP ONE (15:43)
--- NOTE | 2017-12-21 16:49 | PDOC ---
HPI - History of Present Illness History of Present Illness: This very nice 72-year-old female with past medical history significant for COPD comes to the ER complaining of some shortness of breath and cough that's been getting worse over the last 2 or 3 days she went to see her primary care provider who sent him sent her to the ER her reports that it is hard to wake her up at night and turns her oxygen up. When I speak to the said that she can hear her try to call her but she wants to be left alone and pretends she is sleeping. She is doing much better now she did use her BiPAP she is awake and alert with no complaints Past Medical History Medical History: COPD, hypertension, chronic narcotic use with fat no patch secondary to bilateral hip replacements and redos with the chronic pain Surgical History: Bilateral hip replacement 2 chronic pain syndrome Tobacco Use: Never Smoker In the Past 12 Months, Have Used or Abuse Any of the Following Substance: None Medication / Allergies Home Medications: Home Medications 3 Medication Instructions Recorded Confirmed Type Calcium Carbonate [Natural Calcium] 600 mg PO BID 01/14/13 12/21/17 History Cholecalciferol (Vitamin D3) 1 cap PO DAILY #0 cap 01/14/13 12/21/17 History [Vitamin D-3] Fluticasone Furoate [Arnuity 1 puff INH QD #30 puff 10/03/16 12/21/17 Rx Ellipta] LORazepam Tab [Ativan Tab] 1 mg PO Q6H PRN #25 tab 11/24/16 12/21/17 Rx albuterol sulfate HFA 90 1 - 2 puff INH Q4-6H PRN #1 inhaler 06/28/17 12/21/17 Rx mcg/actuation aerosol inhaler gabapentin 300 mg capsule 300 mg PO QHS #30 cap 06/28/17 12/21/17 Rx polysaccharide iron complex 150 mg 150 mg PO BID #60 cap 06/28/17 12/21/17 Rx iron capsule fexofenadine 180 mg tablet 180 mg PO QD tab 07/13/17 12/21/17 History ipratropium-albuterol 0.5 mg-3 3 ml INH QID #90 ea 10/04/17 12/21/17 Rx mg(2.5 mg base)/3 mL nebulization soln fentanyl 75 mcg/hr transdermal 75 mcg TRANSDERM Q72H #10 patch 12/05/17 Rx patch meloxicam 15 mg tablet 15 mg PO QDAY PRN #30 tab 12/19/17 12/21/17 Rx Allergies/Adverse Reactions: Allergies 3 Allergy/AdvReac Type Severity Reaction Status Date / Time Penicillins Allergy Severe Anaphylaxis Verified 12/21/17 17:33 Sulfa (Sulfonamide Allergy Intermediate RASH Verified 12/21/17 17:33 Antibiotics) alendronate sodium AdvReac Intermediate NOT Verified 12/21/17 17:33 [From Fosamax] APPLICABLE Review of Systems - Review of Systems All Systems: Reviewed & No Additional Complaints Except as Stated - Respiratory Respiratory: REPORTS: Cough - Cardiovascular Cardiovascular: DENIES: Negative System Review, Chest Pain, Edema, Syncope, Palpitations, Orthopnea, Paroxysmal Nocturnal Dyspnea, Other, See HPI - Gastrointestinal Gastrointestinal / Abdominal: DENIES: Negative System Review, Nausea, Vomiting, Diarrhea, Constipation, Abdominal Pain, Bloody Stool, Poor Appetite, Heartburn, Regurgitation, Bloating, Lactose Intolerance, Melena, Bright Red Blood per Rectum, Other, See HPI - Genitourinary Genitourinary: DENIES: Negative System Review, Pain, Burning, Hematuria, Incontinence, Urgency, Hesitant Stream, Decreased Stream, Nocutria, Discharge, Sexual Dysfunction, Other, See HPI Exam - Vitals Vital Signs: Vital Signs Temperature 98.9 F Temperature Source Temporal Artery Scan Pulse Rate [Pulse Oximeter 81 Bilateral Radial] Pulse Rate 78 Respiratory Rate 20 Blood Pressure [Left Arm] 171/102 Pulse Ox 96 Oxygen Flow Rate 4 lpm Oxygen Delivery Method Nasal Cannula Height 5 ft Weight 100 lb - General General Appearance: No Acute Distress, Cooperative - Head Head Exam: Normal Inspection, Normocephalic, Atraumatic - Eye Eye Exam: POSITIVE: Normal Appearance, PERRL, EOMI, No Scleral Icterus - Neck Neck Exam: Normal Inspection, Full ROM, No Tenderness, No Lymphadenopathy, No Thyromegaly, JVP is not Raised - Respiratory Respiratory Exam: POSITIVE: Decreased Breath Sounds, Rhonci, Wheezes - Cardiovascular Cardiovascular Exam: POSITIVE: RRR, No Murmur, No Clicks, No Gallops, No Rubs, PMI Non-Displaced - GI/Abdominal GI/Abdominal Exam: POSITIVE: Normal Bowel Sounds, Non Tender, Non Distended, Soft, No Masses, No Hepatomegaly, No Splenomegaly, No Organomegaly - Extremities Extremities Exam: POSITIVE: No Clubbing Present, No Edema Present, No Cyanosis Present - Neurological Neurological Exam: POSITIVE: Alert, Oriented x 3, Reflexes Normal, Normal Gait, CN II-XII Intact, No Facial Droop, Speech Intact / Clear, Moves All Extremities Equally, No Fasciculations, No Clonus - Psychiatric Psychiatric Exam: POSITIVE: Normal Affect, Normal Mood Results - Labs CBC and BMP: 12/21/17 13:15 12/21/17 13:15 Assessment and Plan - Patient Problems (1) COPD (chronic obstructive pulmonary disease) Current Visit: Yes Status: Acute Code(s): J44.9 - Chronic obstructive pulmonary disease, unspecified (2) Hypoxia Current Visit: Yes Status: Acute Code(s): R09.02 - Hypoxemia (3) Anxiety Current Visit: No Status: Acute Code(s): F41.9 - Anxiety disorder, unspecified (4) Centrilobular emphysema Current Visit: No Status: Acute Onset Date: 10/03/16 Code(s): J43.2 - Centrilobular emphysema (5) History of tobacco abuse Current Visit: No Status: Acute Onset Date: 01/01/17 Code(s): Z87.891 - Personal history of nicotine dependence (6) Pain management contract agreement Current Visit: No Status: Acute Onset Date: 01/14/13 Code(s): Z02.89 - Encounter for other administrative examinations - Assessment / Plan Additional Assessment/Plan Details: #1 COPD exacerbation with the hypercapnia patient was started on BiPAP for about an hour that she wanted to come off repeat VBG is improved I told the patient that most likely her fentanyl patch might contribute to her depressed respiratory drive but she says that she cannot live without her fentanyl patch was the severe pain in her hips and she rather if she could have her patch. At present time she is improved doing well continue steroids and dual nebs and antibiotics #2 chronic pain #3-5 blood pressure measurements and we'll start Norvasc 5 mg
[2017-12-21] MEDS ORDERED: ALBUTEROL SULFATE 2.5 MG/3 ML NEB PRN (17:29)
[2017-12-21] MEDS ORDERED: LIDOCAINE W/ SODIUM BICARB 0.5 ML SYR SUBD PRN (17:29)
[2017-12-21] MEDS ORDERED: NORMAL SALINE 10 ML SYRINGE FLUSH IVP PRN (17:29)
--- NOTE | 2017-12-21 17:42 | DI ---
VENOUS DOPPLER ULTRASOUND OF BOTH LOWER EXTREMITIES, 12/21/2017 2:16 PM: Clinical History: Shortness of breath. Leg swelling. Previous Exam: Comparison is made with a venous Doppler ultrasound of the left lower extremity from . Technique: 2D real-time imaging is supplemented with color Doppler ultrasound. Compression and augmen tation maneuvers were performed. The deep venous system from the groin to the popliteal fossa for both legs is normal. The greater sap henous veins are also normal. There is edema of the subcutaneous fat in both lower legs. Reading: Negative venous Doppler ultrasound of both lower extremities for deep vein thrombosis.
[2017-12-21] MEDS ORDERED: cefTRIAXone Inj 2 GM in Sodium Chloride 0.9% 100 ML IV SCH (18:00)
[2017-12-21] MEDS: CALCIUM CARBONATE 500 MG (TUMS) CHEWABLE TABLET PO SCH (18:11)
[2017-12-21] MEDS: methylPREDNISolone 125 MG/2 ML VIAL IVP SCH (18:11)
[2017-12-21] MEDS: HEPARIN 5000 UNIT/1 ML SUBCUT SCH (18:12)
[2017-12-21 18:17] LABS: ABG PCO2 49 MMHG (34-38); ABG PH 7.42 (7.35-7.45); COLLECTION SITE RIGHT RADIAL
[2017-12-21 18:18] LABS: ABG BASE EXCESS 7 MMOL/L (-2-2); ABG OXYGEN SATURATION 80 % (90-100); ABG PO2 45 MMHG (65-75); ALLEN TEST YES
[2017-12-21] MEDS: IPRATROPIUM/ALBUTEROL SULFATE 3 ML NEB NEB PRN (21:01)
[2017-12-21] MEDS: IRON POLYSACCHARIDES COMPLEX 150 MG CAPSULE PO SCH (21:17)
--- NOTE | 2017-12-21 23:00 | EKG ---
[address] [address] Measurements Intervals [place] Rate: 77 P: 73 [place]: 151 QRS: 14 QRSD: 86 T: 37 QT: 344 QTc: 376 Interpretive Statements SINUS RHYTHM POSSIBLE LEFT ATRIAL ENLARGEMENT [-0.1mV P WAVE IN V1/V2] NONSPECIFIC ST ELEVATION [0.05+ mV ST ELEVATION] No previous ECG available for comparison Electronically Signed On 12-24-17 08:28:40 MDT by Aquiles Cordova MD [email or web address]
[2017-12-22] MEDS: methylPREDNISolone 125 MG/2 ML VIAL IVP SCH ×3 (00:51→12:14)
[2017-12-22] MEDS: HEPARIN 5000 UNIT/1 ML SUBCUT SCH ×2 (02:36→09:52)
[2017-12-22 04:17] VITALS: RESP 20
[2017-12-22 05:05] LABS: BASOPHILS # (AUTO) 0 10*3/UL; BASOPHILS % (AUTO) 0 % (0-1); EOSINOPHILS # (AUTO) 0 10*3/UL; EOSINOPHILS % (AUTO) 0 % (0-8); Hemoglobin [HGB] 13.5 g/dL (12.0-16.0); LYMPHOCYTES # (AUTO) 0.56 10*3/uL; MEAN CORPUSCULAR HEMOGLOBIN 31.3 PG (27-31); MEAN CORPUSCULAR HGB CONC 32.9 g/dL (33-37); MEAN CORPUSCULAR VOLUME 94.9 FL (81-99); MEAN PLATELET VOLUME 8.9 FL (7.4-12.2); MONOCYTES # (AUTO) 0.04 10*3/UL (0.3-0.8); MONOCYTES % (AUTO) 0.8 % (5-15); NEUTROPHILS # (AUTO) 4.36 10*3/UL; NEUTROPHILS % (AUTO) 87.9 % (50-80); RED BLOOD COUNT 4.32 10^6/uL (4.20-5.40)
[2017-12-22 05:08] LABS: PLATELET MORPHOLOGY COMMENT NORMAL MORPHOLOGY (NORM); RBC MORPHOLOGY COMMENT NORMAL MORPHOLOGY (NORM); WBC MORPHOLOGY COMMENT NORMAL MORPHOLOGY (NORM)
[2017-12-22 05:19] LABS: BLOOD UREA NITROGEN 16 mg/dL (7-22); BUN/CREATININE RATIO 22.85 (6-20)
[2017-12-22] MEDS: IPRATROPIUM/ALBUTEROL SULFATE 3 ML NEB NEB PRN ×2 (07:01→10:49)
[2017-12-22 08:54] LABS: VENOUS PH 7.41 (7.32-7.42)
[2017-12-22] MEDS: IRON POLYSACCHARIDES COMPLEX 150 MG CAPSULE PO SCH (08:58)
[2017-12-22] MEDS ORDERED: LORATADINE 10 MG TABLET PO SCH (09:00)
[2017-12-22] MEDS ORDERED: Meloxicam Tab 7.5 MG TABLET PO PRN (09:00)
[2017-12-22] MEDS ORDERED: CHOLECALCIFEROL 1000 IU TABLET PO SCH (09:00)
[2017-12-22] MEDS ORDERED: FLUTICASONE FUROATE INH SCH (09:00)
[2017-12-22] MEDS: CALCIUM CARBONATE 500 MG (TUMS) CHEWABLE TABLET PO SCH (09:01)
[2017-12-22 10:51] VITALS: O2SAT 92
[2017-12-22 12:45] VITALS: BP 142/81; TEMP 97.2
--- NOTE | 2017-12-22 14:26 | DCSUMMARY ---
Hospitalization Summary Admit Date: 12/21/2017 Discharge Date: 12/22/17 Primary Diagnosis:: COPD exacerbation Hospital Course: This very pleasant 72-year-old female that had signs and symptoms consistent with a COPD exacerbation. She was placed on BiPAP, admitted, placed on antibiotics and steroids. By the morning, the patient had a much faster than expected recovery, and is back at her baseline oxygen of 3-3-1/2 L per nasal cannula. She feels significantly better and wants to go home. Her , present at bedside for exam, felt that the patient was at her baseline as well. The patient denies any nausea, vomiting, chest pain, or any trouble breathing currently. It turns out that the patient's has been turning up the oxygen every morning, trying to wake the patient up. Were not sure if this is causing hypercapnia or this is worsened because of the fentanyl patch. She does have some evidence of CO2 retention on admission. The patient had reported that if she could not use her fentanyl patch that she would rather to Dr. Adame. The patient's expressed understanding that turning up the oxygen could cause the CO2 to actually go up paradoxically. Given the patient's fast improvement, again faster than expected, we will go ahead discharge the patient go home. Assessment and Plan: 1. As per discharge assessments noted 2. Disposition: Patient is discharged home. 3. Condition on discharge, stable and improved. 4. Diet: regular diet 5. Activities: resume normal activities 6. Follow-Up: 1. Primary care provider this coming week 2. 7. Medications at the Time of Discharge: I will prescribe naloxone for any possible opiate overdose so that the patient and have it on hand. Home Medications 3 Medication Instructions Recorded Confirmed Type Calcium Carbonate [Natural Calcium] 600 mg PO BID 01/14/13 12/21/17 History Cholecalciferol (Vitamin D3) 1 cap PO DAILY #0 cap 01/14/13 12/21/17 History [Vitamin D3] Fluticasone Furoate [Arnuity 1 puff INH QD #30 puff 10/03/16 12/21/17 Rx Ellipta] LORazepam Tab [Ativan Tab] 1 mg PO Q6H PRN #25 tab 11/24/16 12/21/17 Rx albuterol sulfate HFA 90 1 - 2 puff INH Q4-6H PRN #1 inhaler 06/28/17 12/21/17 Rx mcg/actuation aerosol inhaler gabapentin 300 mg capsule 300 mg PO QHS #30 cap 06/28/17 12/21/17 Rx polysaccharide iron complex 150 mg 150 mg PO BID #60 cap 06/28/17 12/21/17 Rx iron capsule fexofenadine 180 mg tablet 180 mg PO QD tab 07/13/17 12/21/17 History ipratropium-albuterol 0.5 mg-3 3 ml INH QID #90 ea 10/04/17 12/21/17 Rx mg(2.5 mg base)/3 mL nebulization soln fentanyl 75 mcg/hr transdermal 75 mcg TRANSDERM Q72H #10 patch 12/05/17 Rx patch meloxicam 15 mg tablet 15 mg PO QDAY PRN #30 tab 12/19/17 12/21/17 Rx Doxycycline Hyclate 100 mg PO Q12H #14 cap 12/22/17 Rx Prednisone 40 mg PO DAILY #10 tab 12/22/17 Rx 8. Time, care, counseling and coordination of care for this discharge is greater than 30 minutes. Exam - Vitals Vital Signs: Vital Signs Temperature 97.2 F Temperature Source Temporal Artery Scan Pulse Rate [Pulse Oximeter] 107 Pulse Rate [Pulse Oximeter 92 Bilateral Radial] Pulse Rate 100 Respiratory Rate 20 Blood Pressure [Left Arm] 142/81 Pulse Ox 92 Oxygen Flow Rate 3 Oxygen Delivery Method Nasal Cannula Height 5 ft Weight 98 lb 1.6 oz - General General Appearance: No Acute Distress, Cooperative - Head Head Exam: Normal Inspection, Normocephalic, Atraumatic - Eye Eye Exam: POSITIVE: No Scleral Icterus - ENT ENT Exam: POSITIVE: Mucous Membranes Moist - Respiratory Respiratory Exam: POSITIVE: Breathing Non Labored, Coarse Breath Sounds - Cardiovascular Cardiovascular Exam: POSITIVE: RRR, No Clicks, No Gallops, No Rubs, No JVD - GI/Abdominal GI/Abdominal Exam: POSITIVE: Normal Bowel Sounds, Non Tender, Non Distended, Soft - Extremities Extremities Exam: POSITIVE: No Edema Present, No Cyanosis Present, Clubbing Present - Neurological Neurological Exam: POSITIVE: Alert, Oriented x 3, No Facial Droop, Speech Intact / Clear, Moves All Extremities Equally Data Peritnent Studies: Laboratory Results 12/21/17 12/21/17 12/22/17 Range/Units 14:42 18:08 04:32 WBC 4.96 (4.8-10.8) 10^3/uL RBC 4.32 (4.20-5.40) 10^6/uL Hgb 13.5 (12.0-16.0) g/dL Hct 41.0 (37.0-47.0) % MCV 94.9 (81-99) FL MCH 31.3 H (27-31) PG MCHC 32.9 L (33-37) g/dL RDW Std Deviation 46.8 (39-50) fL RDW Coeff of El 13.8 (11.5-14.5) % Plt Count 252 (140-350) 10*3/uL MPV 8.9 (7.4-12.2) FL Immature Gran % (Auto) 0 (0-5) % Neut % (Auto) 87.9 H (50-80) % Lymph % (Auto) 11.3 (10-50) % Kle[place] % (Auto) 0.8 L (5-15) % Eos % (Auto) 0 (0-8) % Baso % (Auto) 0 (0-1) % Immature Gran # (Auto) 0 10*3/UL Neut # (Auto) 4.36 10*3/UL Lymph # (Auto) 0.56 10*3/uL [place] # (Auto) 0.04 L (0.3-0.8) 10*3/UL Eos # (Auto) 0 10*3/UL Baso # (Auto) 0 10*3/UL WBC Morphology Comment Normal morphology (NORM) Plt Morphology Comment Normal morphology (NORM) RBC Morph Comment Normal morphology (NORM) PT 10.6 (9.7-11.4) secs INR 1.00 (0.00-5.90) N/A ABG pH 7.42 (7.35-7.45) ABG pCO2 49 H (34-38) MMHG ABG pO2 45 L (65-75) MMHG ABG HCO3 32 H (22-26) ABG Total CO2 33 H (23-27) MMOL/L ABG O2 Saturation 80 L (90-100) % ABG Base Excess 7 H (-2-2) MMOL/L Main Test Yes VBG pH (7.32-7.42) VBG pCO2 (45-55) mmHg VBG HCO3 (22-26) mmol/L VBG Base Excess (-2-2) MMOL/L FiO2 Bipap 35% Sodium (135-145) meq/L Potassium (3.8-5.2) meq/L Chloride (98-112) meq/L Carbon Dioxide (23-33) meq/L Anion Gap (5-20) BUN (7-22) mg/dL Creatinine (0.50-1.20) mg/dL Estimated GFR (>60 ml/min/1.73m(2)) BUN/Creatinine Ratio (6-20) Glucose (78-110) mg/dL Calculated Osmolality (267-292) mOsm/kg Calcium (8.7-10.7) mg/dL 12/22/17 12/22/17 Range/Units 04:32 08:47 WBC (4.8-10.8) 10^3/uL RBC (4.20-5.40) 10^6/uL Hgb (12.0-16.0) g/dL Hct (37.0-47.0) % MCV (81-99) FL MCH (27-31) PG MCHC (33-37) g/dL RDW Std Deviation (39-50) fL RDW Coeff of El (11.5-14.5) % Plt Count (140-350) 10*3/uL MPV (7.4-12.2) FL Immature Gran % (Auto) (0-5) % Neut % (Auto) (50-80) % Lymph % (Auto) (10-50) % [place] % (Auto) (5-15) % Eos % (Auto) (0-8) % Baso % (Auto) (0-1) % Immature Gran # (Auto) 10*3/UL Neut # (Auto) 10*3/UL Lymph # (Auto) 10*3/uL [place] # (Auto) (0.3-0.8) 10*3/UL Eos # (Auto) 10*3/UL Baso # (Auto) 10*3/UL WBC Morphology Comment (NORM) Plt Morphology Comment (NORM) RBC Morph Comment (NORM) PT (9.7-11.4) secs INR (0.00-5.90) N/A ABG pH (7.35-7.45) ABG pCO2 (34-38) MMHG ABG pO2 (65-75) MMHG ABG HCO3 (22-26) ABG Total CO2 (23-27) MMOL/L ABG O2 Saturation (90-100) % ABG Base Excess (-2-2) MMOL/L Main Test VBG pH 7.41 (7.32-7.42) VBG pCO2 44 L (45-55) mmHg VBG HCO3 28 H (22-26) mmol/L VBG Base Excess 3 H (-2-2) MMOL/L FiO2 Sodium 139 (135-145) meq/L Potassium 4.5 (3.8-5.2) meq/L Chloride 94 L (98-112) meq/L Carbon Dioxide 27 (23-33) meq/L Anion Gap 18 (5-20) BUN 16 (7-22) mg/dL Creatinine 0.7 (0.50-1.20) mg/dL Estimated GFR > 60 (>60 ml/min/1.73m(2)) BUN/Creatinine Ratio 22.85 H (6-20) Glucose 162 H (78-110) mg/dL Calculated Osmolality 292.0 (267-292) mOsm/kg Calcium 9.9 (8.7-10.7) mg/dL Patient Problems - Patient Problem List (1) COPD exacerbation Current Visit: Yes Status: Acute Code(s): J44.1 - Chronic obstructive pulmonary disease with (acute) exacerbation Category: Medical (2) Chronic pain syndrome Current Visit: Yes Status: Acute Code(s): G89.4 - Chronic pain syndrome Category: Medical
== END 2017-12-22 15:02 | disposition home or self-care (01) | DRG 192 ==
LOC: ER 12:57 → MED/SURG 17:09
PROVIDERS: ADMIT Internal Medicine; ATTEND Internal Medicine

== ENCOUNTER 2018-09-03 08:00 | Inpatient (IN) ==
[2018-09-03] MEDS ORDERED: Sodium Chloride 0.9% 1,000 ML PRIMARY IV ONE (08:04)
[2018-09-03] MEDS ORDERED: IPRATROPIUM/ALBUTEROL SULFATE 3 ML NEB NEB ONE ×2 (08:06→08:09)
[2018-09-03] MEDS ORDERED: methylPREDNISolone 125 MG/2 ML VIAL IVP ONE (08:06)
[2018-09-03 08:16] LABS: BASOPHILS # (AUTO) 0.05 10*3/UL; BASOPHILS % (AUTO) 0.4 % (0-1); EOSINOPHILS % (AUTO) 15.1 % (0-8); Hematocrit [HCT] 36.7 % (37.0-47.0); LYMPHOCYTES # (AUTO) 1.96 10*3/uL; MEAN CORPUSCULAR HGB CONC 32.7 g/dL (33-37); MEAN CORPUSCULAR VOLUME 94.8 FL (81-99); MEAN PLATELET VOLUME 8.1 FL (7.4-12.2); MONOCYTES # (AUTO) 0.75 10*3/UL (0.3-0.8); MONOCYTES % (AUTO) 6.7 % (5-15); NEUTROPHILS # (AUTO) 6.79 10*3/UL; NEUTROPHILS % (AUTO) 60.2 % (50-80); RED BLOOD COUNT 3.87 10^6/uL (4.20-5.40)
[2018-09-03] MEDS ORDERED: ONDANSETRON 4 MG/2 ML VIAL IVP ONE (08:16)
[2018-09-03] MEDS ORDERED: MORPHINE SULFATE 2 MG/1 ML IVP ONE ×2 (08:16→08:55)
[2018-09-03 08:17] LABS: VENOUS PH 7.3 (7.32-7.42)
[2018-09-03 08:17] LABS: PLATELET MORPHOLOGY COMMENT NORMAL MORPHOLOGY (NORM); RBC MORPHOLOGY COMMENT NORMAL MORPHOLOGY (NORM); WBC MORPHOLOGY COMMENT NORMAL MORPHOLOGY (NORM)
[2018-09-03] MEDS ORDERED: ONDANSETRON 4 MG/2 ML VIAL ONE (08:24)
[2018-09-03] MEDS ORDERED: MORPHINE SULFATE 2 MG/1 ML ONE (08:24)
[2018-09-03] MEDS ORDERED: ALBUTEROL SULFATE 2.5 MG/3 ML NEB ONE (08:24)
[2018-09-03 08:33] LABS: BLOOD UREA NITROGEN 11 mg/dL (7-22); BUN/CREATININE RATIO 13.75 (6-20); SERUM ALBUMIN 4.6 g/dL (3.5-4.8)
--- NOTE | 2018-09-03 08:38 | PDOC ---
General Adult HPI - General Chief Complaint: Chest Pain Stated Complaint: SOB, chest pain Date Seen by Provider: 09/03/18 Time Seen by Provider: 08:00 Source: POSITIVE: Patient Exam Limitations: POSITIVE: Clinical condition Nurse's Notes Reviewed & Considered: Yes - History of Present Illness Initial Comment: The patient is a 73-year-old female who presents to the emergency department with complaints of increased shortness of breath. The patient does have a history of COPD and normally wears 3 L of oxygen baseline. She reports increasing cough and shortness of breath primarily this morning. She does use albuterol at home. She denies fever. She does have some tightness in her chest. She also reports associated headache. She denies swelling in her lower extremities and does not have any history of blood clot. She was recently started on eliquis for atrial flutter which was noted in the clinic several weeks ago. She denies history of heart disease otherwise. Have you received a tetanus shot in the past 10 years?: Unknown - Patient Home Medications Home Medications: Home Medications Calcium Carbonate [Natural Calcium] 600 mg PO BID 01/14/13 Cholecalciferol (Vitamin D3) [Vitamin D3] 1 cap PO DAILY #0 cap 01/14/13 LORazepam Tab [Ativan Tab] 1 mg PO Q6H PRN #25 tab 11/24/16 polysaccharide iron complex 150 mg iron capsule 150 mg PO BID #60 cap 06/28/17 fexofenadine 180 mg tablet 180 mg PO QD tab 07/13/17 gabapentin 300 mg capsule 300 mg PO QHS #30 cap 06/11/18 meloxicam 15 mg tablet 15 mg PO QDAY PRN #30 tab 06/11/18 polysaccharide iron complex 150 mg iron capsule 150 mg PO BID #60 cap 06/11/18 umeclidinium 62.5 mcg-vilanterol 25 mcg/actuation powdr for inhalation 1 inh INH Q24H #30 ea 06/11/18 denosumab 60 mg/mL subcutaneous syringe 60 mg SUBCUT [id number] #1 ml 07/30/18 fentanyl 75 mcg/hr transdermal patch 75 mcg TRANSDERM Q72H #10 patch 08/05/18 albuterol sulfate HFA 90 mcg/actuation aerosol inhaler 1 - 2 puff INH Q4-6H PRN #1 inhaler 08/20/18 apixaban 2.5 mg tablet 2.5 mg PO BID #60 tab 08/20/18 azithromycin 250 mg tablet 1,000 mg PO UD DOSE PK #6 tab 08/20/18 - Patient Allergies Allergies/Adverse Reactions: Allergies Allergy/AdvReac Type Severity Reaction Status Date / Time Penicillins Allergy Severe Anaphylaxis Verified 09/03/18 08:06 Sulfa (Sulfonamide Allergy Intermediate RASH Verified 09/03/18 08:06 Antibiotics) alendronate sodium AdvReac Intermediate SHORTNESS Verified 09/03/18 08:06 [From Fosamax] OF BREATH Past Medical History - heen HEENT History: Dentures/Partials, Other (please comment) Additional HEENT History: WEARS GLASSES Cardiovascular History: Denies History Respiratory History: COPD, Snoring Additional Respiratory History: QUIT SMOKING 06/2016 Gastrointestinal History: Denies History Genitourinary History: Denies History Endocrine History: Denies History Musculoskeletal History: Arthritis, Osteoporosis, Back Pain, Other (please comment) Prosthesis or Implant: Yes (RIGHT HIP HARDWARE) Additional Musculoskeletal History: CHRONIC LEFT HIP PAIN. L PELVIC FRACTURE Neurological History: Migraines Blood Disorders: Denies History Psychiatric History: Depression History of Sexually Transmitted Diseases: No Cancer History: Denies History History of MDRO: No History of Other Communicable Diseases: No Alcohol Use: Rarely In the Past 12 Months, Have Used or Abuse Any Substance: None Previous Surgical History: Yes Type / Date of Surgery: LEFT HIP SURGERY X2, RIGHT HIP REPLACEMENT, LEFT FOOT SURGERY, FULL HYSTERECTOMY Anesthesia Reactions: No Malignant Hyperthermia: No Significant Family History: No pertinent family hx Additional Family History: Renal/skin Past Medical History Reviewed: Reviewed - No Changes ROS - Limitations ROS Limitations: Other (please comment) (History is somewhat limited secondary to patient's clinical condition) Constitution: REPORTS: Chills. DENIES: Fever Cardiovascular: REPORTS: Chest Pain (Chest tightness), Heart Palpitations. DENIES: Edema Respiratory: REPORTS: Cough Non Productive, Shortness Of Breath, Wheezing Neurological: REPORTS: Headache. DENIES: Numbness, Weakness Gastrointestinal: REPORTS: Nausea, Vomitting Musculoskeletal: REPORTS: Denies MS Symptoms Genitourinary: REPORTS: Denies Symptoms Eyes: REPORTS: Denies Symptoms ENT: REPORTS: Denies Symptoms Skin: DENIES: Rash General Adult Exam - General Appearance General Appearance: POSITIVE: Other (The patient is awake, she does appear to be in acute distress) - HEENT HEENT: POSITIVE: Head Inspection Nml, Eyes Inspection Nml, Ears Inspection Nml, Nose Inspection Nml, Pharynx Inspect. Nml - Neck Neck: POSITIVE: Normal Inspection - Respiratory Respiratory: POSITIVE: Other (The patient has diminished breath sounds with audible wheezes and rhonchi throughout, she is slightly tachypneic and can only talk in one or 2 word sentences.) - Cardiovascular Cardiovascular: POSITIVE: Regular Rate & Rhythm, No Murmur Peripheral Pulses: Dorsalis-pedis (R): 2+, Dorsalis-pedis (L): 2+ - Abdomen Abdomen: Soft: (All Quadrants), Denies Tenderness: (All Quadrants), No Distention: (All Quadrants) - Back Back: POSITIVE: Normal Inspection - Skin Skin: POSITIVE: Normal Color, No Rash - Extremities Extremity: Normal ROM: (All Extremities), Normal Inspection: (All Extremities) - Neurological / Psychological Neurological: POSITIVE: Oriented X3, Motor Normal, Sensation Normal General Adult Progress - Results Reviewed by me Xrays/CTs/US Reviewed by me: Yes Discussed with Radiologist: Yes Radiology Findings: Chest x-ray shows emphysematous changes with no acute infiltrate per radiologist. CT of the chest shows no evidence of PE or infiltrate, emphysematous changes per radiologist. CT scan of the head shows no acute findings per radiologist. Lab Results Reviewed by Me: Yes Lab Results:: Laboratory Results 09/03/18 09/03/18 09/03/18 08:14 08:15 08:15 WBC 11.27 H RBC 3.87 L Hgb 12.0 Hct 36.7 L MCV 94.8 MCH 31.0 MCHC 32.7 L RDW Std Deviation 47.2 RDW Coeff of El 14.0 Plt Count 329 MPV 8.1 Immature Gran % (Auto) 0.2 Neut % (Auto) 60.2 Lymph % (Auto) 17.4 Wise % (Auto) 6.7 Eos % (Auto) 15.1 H Baso % (Auto) 0.4 Immature Gran # (Auto) 0.02 Neut # (Auto) 6.79 Lymph # (Auto) 1.96 Wise # (Auto) 0.75 Eos # (Auto) 1.70 Baso # (Auto) 0.05 WBC Morphology Comment Normal morphology Plt Morphology Comment Normal morphology RBC Morph Comment Normal morphology D-Dimer 0.91 H VBG pH 7.30 L VBG pCO2 58 H VBG HCO3 29 H VBG Base Excess 2 Sodium Potassium Chloride Carbon Dioxide Anion Gap BUN Creatinine BUN/Creatinine Ratio Glucose Calculated Osmolality Lactic Acid Calcium Magnesium Total Bilirubin AST ALT Alkaline Phosphatase Troponin I C-Reactive Protein NT-Pro-B Natriuret Pep Total Protein Albumin Globulin Albumin/Globulin Ratio TSH Serum Alcohol 09/03/18 09/03/18 09/03/18 08:15 08:15 08:15 WBC RBC Hgb Hct MCV MCH MCHC RDW Std Deviation RDW Coeff of [place] Plt Count MPV Immature Gran % (Auto) Neut % (Auto) Lymph % (Auto) Wise % (Auto) Eos % (Auto) Baso % (Auto) Immature Gran # (Auto) Neut # (Auto) Lymph # (Auto) Wise # (Auto) Eos # (Auto) Baso # (Auto) WBC Morphology Comment Plt Morphology Comment RBC Morph Comment D-Dimer VBG pH VBG pCO2 VBG HCO3 VBG Base Excess Sodium 133 L Potassium 4.8 Chloride 93 L Carbon Dioxide 31 Anion Gap 9 BUN 11 Creatinine 0.8 BUN/Creatinine Ratio 13.75 Glucose 124 H Calculated Osmolality 275.0 Lactic Acid 1.4 Calcium 9.5 Magnesium 1.8 Total Bilirubin 0.6 AST 30 ALT 34 Alkaline Phosphatase 59 Troponin I < 0.012 C-Reactive Protein < 0.5 NT-Pro-B Natriuret Pep 167 H Total Protein 7.6 Albumin 4.6 Globulin 2.9 Albumin/Globulin Ratio 1.50 TSH Serum Alcohol < 10 09/03/18 08:15 WBC RBC Hgb Hct MCV MCH MCHC RDW Std Deviation RDW Coeff of [place] Plt Count MPV Immature Gran % (Auto) Neut % (Auto) Lymph % (Auto) Wise % (Auto) Eos % (Auto) Baso % (Auto) Immature Gran # (Auto) Neut # (Auto) Lymph # (Auto) Wise # (Auto) Eos # (Auto) Baso # (Auto) WBC Morphology Comment Plt Morphology Comment RBC Morph Comment D-Dimer VBG pH VBG pCO2 VBG HCO3 VBG Base Excess Sodium Potassium Chloride Carbon Dioxide Anion Gap BUN Creatinine BUN/Creatinine Ratio Glucose Calculated Osmolality Lactic Acid Calcium Magnesium Total Bilirubin AST ALT Alkaline Phosphatase Troponin I C-Reactive Protein NT-Pro-B Natriuret Pep Total Protein Albumin Globulin Albumin/Globulin Ratio TSH 2.57 Serum Alcohol CBC and BMP: 09/03/18 08:15 09/03/18 08:15 EKG Interpreted/Reviewed By Me:: Yes EKG Interpretation:: POSITIVE: Normal Sinus Rhythm, Other (Sinus tachycardia with a rate of 102, no acute ST segment or T-wave changes.) - Patient's Progress MDM / ED Course: The patient was in respiratory distress on arrival. She had audible wheezes and rhonchi throughout her lung morales and had increased work of breathing. She did receive a DuoNeb. An IV was established, blood cultures and lactate were drawn with IV start. Venous blood gas reveals a pH of 7.30 with a PCO2 of 58. Her EKG shows a sinus rhythm with a rate of 102, no acute ST segment or T-wave changes. She had continued wheezing and shortness of breath and she received a second albuterol neb treatment and was placed on BiPAP. After administration of nebs, Solu-Medrol and BiPAP she was feeling better. Her chest x-ray shows emphysematous changes with no obvious infiltrate per radiologist. Blood work reveals a white count which is mildly elevated. Her troponin is normal and BNP is only slightly elevated. She did report continued headache as well as nausea with some dry heaves here in the emergency department. She received morphine 2 mg IV and Zofran 4 mg IV with improvement. After CT her headache returned and she received a second dose of morphine with improvement. The patient's d-dimer was elevated and CT of the chest showed no evidence of PE. CT scan of her head was also normal. It appears that the primary issue is COPD exacerbation with some mild respiratory acidosis. She was started on Zithromax 500 mg IV as well. The patient is discussed with Dr. Carrizales who is agreed to admit the patient. The patient is in agreement with this plan. She is adamant about being DNR/DNI and does not want to be transferred to [place]. - Consult Counseled: POSITIVE: Patient, RE: Lab Results, RE: Radiology Results, RE: DX, RE: Need for F/U Patient Care Time - Estimated PCT Patient Care Time (In Minutes): 35 Vital Signs - Recent Vital Signs Vital Signs: Vital Signs (Last 8 hours) Temp Pulse Pulse Resp BP Pulse Ox 09/03/18 08:35 108 H 22 100 09/03/18 08:34 108 H 18 100 09/03/18 08:21 109 H 30 H 100 09/03/18 08:20 111 H 30 H 100 09/03/18 08:05 98.1 F 104 H 116 H 32 H 191/114 95 - VS Reviewed Vital Signs Reviewed: Yes Discharge Clinical Impression: COPD exacerbation, Respiratory acidosis Discharge Disposition: Admit to Inpatient Condition: Fair Follow Up With: LUANA DIAZ [Primary Care Provider] - Date Decision to Admit to Inpatient: 09/03/18 Time Decision to Admit to Inpatient: 09:55
--- NOTE | 2018-09-03 08:47 | EKG ---
[address] [address] Measurements Intervals Victor Rate: 104 P: 91 AR: 141 QRS: 79 QRSD: 91 T: 78 QT: 327 QTc: 387 Interpretive Statements SINUS TACHYCARDIA RIGHT ATRIAL ENLARGEMENT POSSIBLE LEFT ATRIAL ENLARGEMENT Compared to ECG 08/20/2018 15:22:17 Atrial abnormality now present Atrial fibrillation no longer present Electronically Signed On 09-03-18 17:14:31 MST by Angel Vinson [email or web address]
--- NOTE | 2018-09-03 08:51 | DI ---
AP CHEST X-RAY, 09/03/2018 8:04 AM : Clinical History: Shortness of breath. Hypoxia. Previous Exam: 07/31/2017. Comparison is also made with a CT angiogram of the chest from 12/21/2017. Soft Tissues: No acute soft tissue abnormality. The patient appears cachectic. Bones: Normal. Heart: Normal heart. Lungs: No infiltrate or effusion. There is centrilobular emphysema and septae present in both upper l obes, consistent with bullae. Jaelyn B lines are present bilaterally indicating chronic interstitial pulmonary fibrosis. Mediastinum: Normal mediastinum. Nodules: No pulmonary nodules. Readin. No acute infiltrate or effusion. 2. Centrilobular emphysema with probable bullae. Chronic interstitial pulmonary fibrosis.
--- NOTE | 2018-09-03 10:16 | DI ---
CT ANGIOGRAM OF THE CHEST, 09/03/2018 8:44 AM : Clinical History: SOB, hypoxia, elevated d-dimer Previous Exam: 12/21/2017. Technique: Scans from base of neck to lung bases with IV contrast. Bolus tracking protocol was used f or timing the injection. Non-MIPS and MIPS sagittal/coronal images generated. IV Contrast: 50 mL of Isovue 300. Base of Neck: Normal. Nodes: Normal axillary, supraclavicular, mediastinal, and hilar lymph nodes. Heart: Normal. Scattered calcifications in the proximal third of the LAD.00 Aorta: Normal thoracic aorta. No aneurysm or dissection. Pulmonary Arteries: Normal. No pulmonary emboli or infarcts; no pulmonary hypertension. Lungs: No infiltrate or effusion. Small blebs are present throughout the hyperinflated lungs indicati ng centrilobular emphysema with bullae. Jaelyn B lines are present but there are actually more Jaelyn A lines, and these indicate chronic interstitial pulmonary fibrosis. Nodules: None. Bony Structures: Normal visualized portions of ribs, sternum, scapulae, clavicles, and shoulders. Nor mal visualized portions of thoracic spine. Limited Upper Abdomen: Normal adrenal glands and spleen. Normal limited views of liver and pancreas. READIN. Normal CTA of the chest. There are no pulmonary emboli or pulmonary infarcts. 2. Bullous emphysema with chronic interstitial pulmonary fibrosis.
--- NOTE | 2018-09-03 10:19 | DI ---
CT HEAD SCAN WITHOUT IV CONTRAST, 09/03/2018 8:44 AM : Clinical History: Headache. Vomiting. Previous Exam: 04/04/2011. Technique: Performed from the foramen magnum to vertex without IV contrast. Contrast Volume: None. Comment: Motion artifacts are noted. The patient was continuously moving because of respiratory diffi culty. 4th Ventricle: Normal. 3rd Ventricle: Mildly dilated, but normal for age. Lateral Ventricles: Mildly dilated, but normal for age. Cerebrum: Normal. No acute bland or hemorrhagic infarct. Cerebellum: Normal. No cerebellopontine angle mass. Brainstem: Normal. Atrophy: Mild cerebellar and cerebral atrophy. Extracerebral Mantles/Midline Shift: No extracerebral mantle or dural lesion. No midline shift. Sinuses: Normal. Skull: Intact. READIN. No acute hemorrhagic or bland infarct. There is no cerebellar pontine angle mass. 2. Mild cerebellar and cerebral atrophy.
[2018-09-03 10:57] LABS: ABG BASE EXCESS 4 MMOL/L (-2-2); ABG OXYGEN SATURATION 94 % (90-100); ABG PCO2 57 MMHG (34-38); ABG PH 7.33 (7.35-7.45); ABG PO2 78 MMHG (65-75); ALLEN TEST Y; COLLECTION SITE L RADIAL
[2018-09-03 12:24] LABS: BILIRUBIN,URINE NEGATIVE (NEG); CLARITY,URINE CLEAR (CLEAR); COLOR,URINE YELLOW (Y); GLUCOSE, URINE (UA) NEGATIVE (NEG); OCCULT BLOOD,URINE NEGATIVE (NEG); PH,URINE 6.5 (5.0-8.5); PROTEIN,URINE NEGATIVE (NEG); UROBILINOGEN,URINE 0.2 EU/dL (0.2)
[2018-09-03 12:27] LABS: URINE SAMPLE TYPE CATH SPECIMEN
[2018-09-03] MEDS ORDERED: ONDANSETRON 4 MG/2 ML VIAL IVP PRN (12:48)
[2018-09-03] MEDS ORDERED: FEXOFENADINE HCL 180 MG PO SCH (12:48)
[2018-09-03] MEDS ORDERED: LIDOCAINE W/ SODIUM BICARB 0.5 ML SYR SUBD PRN (12:48)
[2018-09-03] MEDS ORDERED: ALBUTEROL SULFATE 2.5 MG/3 ML NEB PRN (12:48)
[2018-09-03] MEDS: IPRATROPIUM/ALBUTEROL SULFATE 3 ML NEB NEB SCH ×3 (13:26→19:28)
[2018-09-03] MEDS ORDERED: Pneumococcal Vacc 13 Syringe 0.5 ML DISP.SYRIN IM ONE (14:49)
[2018-09-03] MEDS ORDERED: Influenza 18-19 Vaccine (6mo+) 60 MCG/0.5 ML SYRINGE IM ONE (15:00)
--- NOTE | 2018-09-03 15:19 | PDOC ---
HPI - History of Present Illness Date of Service: 09/03/18 Time of Service: 15:13 Chief Complaint: Short of breath History of Present Illness: Severity pleasant 73-year-old female with end-stage COPD, who comes in this morning by ambulance after waking up and having sudden onset of shortness of breath. In the emergency room, she had to be placed on BiPAP due to increased work of breathing and CO2 retention along with acidosis. She responded well to BiPAP therapy. She's not had an exacerbation like this before. She denies any fevers, chills but did complain of nausea. No vomiting. She feels like she has had an increased work of breathing, but no change in her phlegm production. She is normally on oxygen at home, 09/04, but her oxygen had to be increased here this morning. She has not had the flu shot, but she is up-to-date on her Pneumovax both the 13 and 23 valent. BiPAP did help her feel better. Breathing therapy did not help much at home. She was given antibiotics and a dose of Solu-Medrol in the emergency room. She does not smoke and quit over 3 years ago Past Medical History Medical History: COPD which is likely end-stage, hypertension, chronic narcotic use with fat no patch secondary to bilateral hip replacements and redos with the chronic pain Surgical History: Bilateral hip replacement 2 chronic pain syndrome Pertinent Family History: The patient states that she is adopted and she does not know her biologic parents' history Past Social History: Used to smoke but quit 3 years ago. for 51 years. Has 3 daughters. Retired and lives here in [place], [place]. One of her daughters has some issues with her kidneys. Tobacco Use: Former Smoker In the Past 12 Months, Have Used or Abuse Any of the Following Substance: None Alcohol Use: None Medication / Allergies Home Medications: Home Medications Medication Instructions Recorded Confirmed Type Calcium Carbonate [Natural Calcium] 600 mg PO BID 01/14/13 09/03/18 History Cholecalciferol (Vitamin D3) 1 cap PO DAILY #0 cap 01/14/13 09/03/18 History [Vitamin D3] LORazepam Tab [Ativan Tab] 1 mg PO Q6H PRN #25 tab 11/24/16 09/03/18 Rx polysaccharide iron complex 150 mg 150 mg PO BID #60 cap 06/28/17 09/03/18 Rx iron capsule fexofenadine 180 mg tablet 180 mg PO QD tab 07/13/17 09/03/18 History gabapentin 300 mg capsule 300 mg PO QHS #30 cap 06/11/18 09/03/18 Rx meloxicam 15 mg tablet 15 mg PO QDAY PRN #30 tab 06/11/18 09/03/18 Rx polysaccharide iron complex 150 mg 150 mg PO BID #60 cap 06/11/18 09/03/18 Rx iron capsule umeclidinium 62.5 mcg-vilanterol 1 inh INH Q24H #30 ea 06/11/18 09/03/18 Rx 25 mcg/actuation powdr for inhalation denosumab 60 mg/mL subcutaneous 60 mg SUBCUT [id number] #1 ml 07/30/18 09/03/18 Rx syringe fentanyl 75 mcg/hr transdermal 75 mcg TRANSDERM Q72H #10 patch 08/05/18 09/03/18 Rx patch albuterol sulfate HFA 90 1 - 2 puff INH Q4-6H PRN #1 inhaler 08/20/18 09/03/18 Rx mcg/actuation aerosol inhaler apixaban 2.5 mg tablet 2.5 mg PO BID #60 tab 08/20/18 09/03/18 Rx azithromycin 250 mg tablet 1,000 mg PO UD DOSE PK #6 tab 08/20/18 09/03/18 Rx Allergies/Adverse Reactions: Allergies Allergy/AdvReac Type Severity Reaction Status Date / Time Penicillins Allergy Severe Anaphylaxis Verified 09/03/18 12:49 Sulfa (Sulfonamide Allergy Intermediate RASH Verified 09/03/18 12:49 Antibiotics) alendronate sodium AdvReac Intermediate SHORTNESS Verified 09/03/18 12:49 [From Fosamax] OF BREATH Review of Systems - Review of Systems All Systems: Reviewed & No Additional Complaints Except as Stated (I did a 12 point review systems and it was negative other than that discussed below and in the history of present illness.) - Constitutional Constitutional: REPORTS: Other (Denies any weight loss. States that she's actually been gaining weight.) - Respiratory Respiratory: REPORTS: See HPI - Cardiovascular Cardiovascular: REPORTS: Negative System Review - Genitourinary Genitourinary: REPORTS: Incontinence (Occasionally. Cannot get to the bathroom in time.) Exam - Vitals Vital Signs: Vital Signs Temperature 98 F Temperature Source Axillary Pulse Rate [Telemetry] 98 Pulse Rate 91 Respiratory Rate 18 Blood Pressure [Left Arm] 146/87 Blood Pressure 148/88 Pulse Ox 94 Oxygen Flow Rate 4 Oxygen Delivery Method Nasal Cannula Height 5 ft 7 in Weight 106 lb - General General Appearance: No Acute Distress, Cooperative - Head Head Exam: Normal Inspection, Normocephalic, Atraumatic - Eye Eye Exam: POSITIVE: No Scleral Icterus - ENT ENT Exam: POSITIVE: Mucous Membranes Moist - Neck Neck Exam: Normal Inspection, No Tenderness, No Lymphadenopathy, No Thyromegaly, JVP is not Raised Additional Neck Exam Details: Prominent anterior scalene muscles - Respiratory Respiratory Exam: POSITIVE: Normal to Percussion and Palpation, Decreased Breath Sounds, Wheezes - Cardiovascular Cardiovascular Exam: POSITIVE: RRR, No Murmur, No Clicks, No Gallops, No Rubs, No JVD - GI/Abdominal GI/Abdominal Exam: POSITIVE: Normal Bowel Sounds, Non Tender, Non Distended, Soft - Rectal Rectal Exam: POSITIVE: Deferred - External Exam: POSITIVE: Deferred Exam: POSITIVE: Deferred - Extremities Extremities Exam: POSITIVE: No Edema Present, No Cyanosis Present, Clubbing Present - Neurological Neurological Exam: POSITIVE: Alert, Oriented x 3, No Facial Droop, Speech Intact / Clear, Moves All Extremities Equally - Psychiatric Psychiatric Exam: POSITIVE: Normal Affect, Normal Mood Results - Labs CBC and BMP: 09/03/18 08:15 09/03/18 08:15 Additional Lab Results: Laboratory Results 09/03/18 09/03/18 09/03/18 08:14 08:15 08:15 WBC 11.27 H RBC 3.87 L Hgb 12.0 Hct 36.7 L MCV 94.8 MCH 31.0 MCHC 32.7 L RDW Std Deviation 47.2 RDW Coeff of El 14.0 Plt Count 329 MPV 8.1 Immature Gran % (Auto) 0.2 Neut % (Auto) 60.2 Lymph % (Auto) 17.4 [place] % (Auto) 6.7 Eos % (Auto) 15.1 H Baso % (Auto) 0.4 Immature Gran # (Auto) 0.02 Neut # (Auto) 6.79 Lymph # (Auto) 1.96 [place] # (Auto) 0.75 Eos # (Auto) 1.70 Baso # (Auto) 0.05 WBC Morphology Comment Normal morphology Plt Morphology Comment Normal morphology RBC Morph Comment Normal morphology D-Dimer 0.91 H ABG pH ABG pCO2 ABG pO2 ABG HCO3 ABG Total CO2 ABG O2 Saturation ABG Base Excess Main Test VBG pH 7.30 L VBG pCO2 58 H VBG HCO3 29 H VBG Base Excess 2 FiO2 Sodium Potassium Chloride Carbon Dioxide Anion Gap BUN Creatinine BUN/Creatinine Ratio Glucose Calculated Osmolality Lactic Acid Calcium Magnesium Total Bilirubin AST ALT Alkaline Phosphatase Troponin I C-Reactive Protein NT-Pro-B Natriuret Pep Total Protein Albumin Globulin Albumin/Globulin Ratio TSH Ur Collection Type Urine Color Urine Clarity Urine pH Ur Specific [place] Urine Protein Urine Glucose (UA) Urine Ketones Urine Occult Blood Urine Nitrate Urine Bilirubin Urine Urobilinogen Ur Leukocyte Esterase Ur Culture Indicated? Serum Alcohol 09/03/18 09/03/18 09/03/18 08:15 08:15 08:15 WBC RBC Hgb Hct MCV MCH MCHC RDW Std Deviation RDW Coeff of [place] Count MPV Immature Gran % (Auto) Neut % (Auto) Lymph % (Auto) [place] % (Auto) Eos % (Auto) Baso % (Auto) Immature Gran # (Auto) Neut # (Auto) Lymph # (Auto) [place] # (Auto) Eos # (Auto) Baso # (Auto) WBC Morphology Comment Plt Morphology Comment RBC Morph Comment D-Dimer ABG pH ABG pCO2 ABG pO2 ABG HCO3 ABG Total CO2 ABG O2 Saturation ABG Base Excess Main Test VBG pH VBG pCO2 VBG HCO3 VBG Base Excess FiO2 Sodium 133 L Potassium 4.8 Chloride 93 L Carbon Dioxide 31 Anion Gap 9 BUN 11 Creatinine 0.8 BUN/Creatinine Ratio 13.75 Glucose 124 H Calculated Osmolality 275.0 Lactic Acid 1.4 Calcium 9.5 Magnesium 1.8 Total Bilirubin 0.6 AST 30 ALT 34 Alkaline Phosphatase 59 Troponin I < 0.012 C-Reactive Protein < 0.5 NT-Pro-B Natriuret Pep 167 H Total Protein 7.6 Albumin 4.6 Globulin 2.9 Albumin/Globulin Ratio 1.50 TSH Ur Collection Type Urine Color Urine Clarity Urine pH Ur Specific [place] Urine Protein Urine Glucose (UA) Urine Ketones Urine Occult Blood Urine Nitrate Urine Bilirubin Urine Urobilinogen Ur Leukocyte Esterase Ur Culture Indicated? Serum Alcohol < 10 09/03/18 09/03/18 09/03/18 08:15 10:37 12:00 WBC RBC Hgb Hct MCV MCH MCHC RDW Std Deviation RDW Coeff of [place] Count MPV Immature Gran % (Auto) Neut % (Auto) Lymph % (Auto) [place] % (Auto) Eos % (Auto) Baso % (Auto) Immature Gran # (Auto) Neut # (Auto) Lymph # (Auto) [place] # (Auto) Eos # (Auto) Baso # (Auto) WBC Morphology Comment Plt Morphology Comment RBC Morph Comment D-Dimer ABG pH 7.33 L ABG pCO2 57 H ABG pO2 78 H ABG HCO3 30 H ABG Total CO2 32 H ABG O2 Saturation 94 ABG Base Excess 4 H Main Test Y VBG pH VBG pCO2 VBG HCO3 VBG Base Excess FiO2 40% Sodium Potassium Chloride Carbon Dioxide Anion Gap BUN Creatinine BUN/Creatinine Ratio Glucose Calculated Osmolality Lactic Acid Calcium Magnesium Total Bilirubin AST ALT Alkaline Phosphatase Troponin I C-Reactive Protein NT-Pro-B Natriuret Pep Total Protein Albumin Globulin Albumin/Globulin Ratio TSH 2.57 Ur Collection Type Cath specimen Urine Color Yellow Urine Clarity Clear Urine pH 6.5 Ur Specific [place] 1.010 Urine Protein Negative Urine Glucose (UA) Negative Urine Ketones Negative Urine Occult Blood Negative Urine Nitrate Negative Urine Bilirubin Negative Urine Urobilinogen 0.2 Ur Leukocyte Esterase Negative Ur Culture Indicated? Culture not set Serum Alcohol - EKG Data -: EKG Interpreted by Me Rate: Normal EKG Shows Normal: Sinus Rhythm - EKG Data EKG Interpretation: Other (Enlarged P wave consistent with atrial enlargement) - Imaging Status: Image Reviewed by Me (Chest x-ray negative for pneumonia, consistent with COPD with elongated lung morales. Flattened diaphragm. Head CT scan does not show any evidence of bleed. Chest CT scan does not show any infiltrates but does look consistent with emphysema on my view. No PE per radiology.) Assessment and Plan - Patient Problems (1) COPD exacerbation Current Visit: Yes Status: Acute Code(s): J44.1 - Chronic obstructive pulmonary disease with (acute) exacerbation (2) Respiratory acidosis Current Visit: Yes Status: Acute Code(s): E87.2 - Acidosis (3) Chronic pain syndrome Current Visit: No Status: Acute Code(s): G89.4 - Chronic pain syndrome (4) Gastroesophageal reflux disease Current Visit: Yes Status: Chronic Onset Date: 10/27/06 Qualifiers: Esophagitis presence: esophagitis presence not specified Qualified Code(s): K21.9 - Gastro-esophageal reflux disease without esophagitis (5) Anxiety Current Visit: Yes Status: Acute Code(s): F41.9 - Anxiety disorder, u nspecified - Assessment / Plan Additional Assessment/Plan Details: Admit as inpatient in ICU patient would benefit from LAMA-LABA therapy, but will use nebulized Duonebs and albuterol in hospital hold inhaled corticosteroids assess pneumovax and influenza vaccine status, has had Pneumovax in my discussion with pharmacy. We will give vaccine for influenza prevention prednisone, 40 mg daily for 5 days zithromax, 500 mg PO daily and we'll do that for 4 more days starting tomorrow as patient had an IV dose today. Awaiting viral respiratory culture workup with bio fire profile oxygen to maintain oxygen saturations at 91% Given acidosis and CO2 retention, uses BiPAP. I think this will help reduce the patient's work of breathing code status is full code, but does not want any intubation longer than 48 hours, do not intubate for respiratory condition. check CBC with diff in AM if between June and end november, check for influenza CT negative for PE, but start DVT/PE prophylaxis smoking cessation education.--patient has already quit check venous blood gas in AM
[2018-09-03] MEDS ORDERED: Apixaban Tab 2.5 MG TABLET PO SCH (21:00)
[2018-09-03] MEDS ORDERED: GABAPENTIN 300 MG CAPSULE PO SCH (21:00)
[2018-09-03] MEDS ORDERED: IRON POLYSACCHARIDES COMPLEX 150 MG CAPSULE PO SCH ×2 (21:00)
[2018-09-03] MEDS ORDERED: CALCIUM CARBONATE 500 MG (TUMS) CHEWABLE TABLET PO SCH (21:00)
[2018-09-04] MEDS: LORazepam 1 MG TABLET PO PRN ×2 (00:52→06:51)
[2018-09-04] MEDS ORDERED: methylPREDNISolone 125 MG/2 ML VIAL IVP ONE (01:05)
[2018-09-04 05:04] LABS: VENOUS PH 7.41 (7.32-7.42)
[2018-09-04 05:34] LABS: Hematocrit [HCT] 33.7 % (37.0-47.0); Hemoglobin [HGB] 10.7 g/dL (12.0-16.0); MEAN CORPUSCULAR HGB CONC 31.8 g/dL (33-37); MEAN CORPUSCULAR VOLUME 94.4 FL (81-99); MEAN PLATELET VOLUME 8.4 FL (7.4-12.2); RED BLOOD COUNT 3.57 10^6/uL (4.20-5.40)
[2018-09-04 05:54] LABS: BLOOD UREA NITROGEN 18 mg/dL (7-22)
[2018-09-04 06:32] LABS: BAND NEUTROPHILS % 2 % (0-10); BASOPHILS % (MANUAL) 1 % (0-1); EOSINOPHILS % (MANUAL) 0 % (0-8); MONOCYTES % (MANUAL) 1 % (0-12); NEUTROPHILS % (MANUAL) 85 % (50-80); PLATELET MORPHOLOGY COMMENT NORMAL MORPHOLOGY (NORM); RBC MORPHOLOGY COMMENT NORMAL MORPHOLOGY (NORM); WBC MORPHOLOGY COMMENT SEE COMMENTS (NORM)
[2018-09-04] MEDS: IPRATROPIUM/ALBUTEROL SULFATE 3 ML NEB NEB SCH ×4 (06:35→18:29)
--- NOTE | 2018-09-04 08:21 | PDOC(PROG) ---
Date of Service: 09/04/18 Time of Service: 08:30 Interval History: Subjective Patient feels a little bit better compared to yesterday. She said she came in because of worsening shortness of breath. She has a history of COPD she is on oxygen 3-1/2 L. In addition to the shortness of breath he did report some wheezing. There is some cough with phlegm production. Described as clear. Objective : Data - Labs CBC and BMP: 09/04/18 04:54 09/04/18 04:54 Objective : Exam - General General Appearance: No Acute Distress, Cooperative - Head Head Exam: Normal Inspection - Eye Eye Exam: Normal Appearance - ENT ENT Exam: Normal Exam - Neck Neck Exam: Normal Inspection - Respiratory Additional Respiratory Exam Details: Decreased air entry with occasional wheeze. - Cardiovascular Cardiovascular Exam: RRR - GI/Abdominal GI/Abdominal Exam: Normal Bowel Sounds, Non Tender, Non Distended, Soft, No Orga nomegaly - Rectal Rectal Exam: Deferred - External Exam: Deferred Exam: Deferred - Extremities Extremities Exam: Normal Inspection - Back Back Exam: Normal Inspection - Neurological Neurological Exam: Alert, Oriented x 3, CN II-XII Intact, No Facial Droop, Speech Intact / Clear, Moves All Extremities Equally - Psychiatric Psychiatric Exam: Normal Affect Assessment and Plan - Patient Problems (1) COPD exacerbation Current Visit: Yes Status: Acute Comment: I think we'll continue with IV steroid, IV antibiotics for today. We'll see how things look tomorrow and then will decide. Her CO2 level seems to be improved. Code(s): J44.1 - Chronic obstructive pulmonary disease with (acute) exacerbation (2) Anxiety Current Visit: Yes Status: Acute Comment: Continue Ativan as needed Code(s): F41.9 - Anxiety disorder, unspecified (3) Chronic pain syndrome Current Visit: No Status: Acute Comment: Continue fentanyl Code(s): G89.4 - Chronic pain syndrome (4) Respiratory acidosis Current Visit: Yes Status: Acute Comment: Seems to be resolved, likely secondary to COPD exacerbation Code(s): E87.2 - Acidosis (5) History of atrial fibrillation Current Visit: Yes Status: Acute Comment: Continue eliquis Code(s): Z86.79 - Personal history of other diseases of the circulatory system
[2018-09-04] MEDS ORDERED: LIDOCAINE W/ SODIUM BICARB 0.5 ML SYR SUBD PRN (08:35)
[2018-09-04] MEDS ORDERED: Vancomycin-PHA to Dose IV PRN (08:48)
[2018-09-04] MEDS ORDERED: predniSONE Tab 20 MG TAB PO SCH (09:00)
[2018-09-04] MEDS ORDERED: CHOLECALCIFEROL 1000 IU TABLET PO SCH (09:00)
[2018-09-04] MEDS ORDERED: methylPREDNISolone 125 MG/2 ML VIAL IVP SCH (09:00)
[2018-09-04] MEDS ORDERED: Meloxicam Tab 7.5 MG TABLET PO PRN ×2 (09:00)
[2018-09-04] MEDS ORDERED: LORATADINE 10 MG TABLET PO SCH (09:00)
[2018-09-04] MEDS: CHOLECALCIFEROL 1000 IU TABLET PO SCH (09:46)
[2018-09-04] MEDS: CALCIUM CARBONATE 500 MG (TUMS) CHEWABLE TABLET PO SCH ×3 (09:46→20:33)
[2018-09-04] MEDS: Apixaban Tab 2.5 MG TABLET PO SCH ×2 (09:46→20:31)
[2018-09-04] MEDS ORDERED: AZITHROMYCIN 250 MG TABLET PO SCH (10:00)
[2018-09-04] MEDS: LORATADINE 10 MG TABLET PO SCH (10:00)
[2018-09-04] MEDS: IRON POLYSACCHARIDES COMPLEX 150 MG CAPSULE PO SCH ×2 (10:00→20:31)
[2018-09-04] MEDS: methylPREDNISolone 125 MG/2 ML VIAL IVP SCH ×2 (10:01→16:44)
[2018-09-04] MEDS ORDERED: Pneumococcal Vacc 13 Syringe 0.5 ML DISP.SYRIN IM ONE (13:27)
[2018-09-04] MEDS: GABAPENTIN 300 MG CAPSULE PO SCH (20:32)
[2018-09-04] MEDS: ACETAMINOPHEN 325 MG TABLET PO PRN (22:32)
[2018-09-05] MEDS: methylPREDNISolone 125 MG/2 ML VIAL IVP SCH ×3 (00:35→17:51)
[2018-09-05] MEDS: LORazepam 1 MG TABLET PO PRN ×2 (00:39→09:45)
[2018-09-05] MEDS: ALBUTEROL SULFATE 2.5 MG/3 ML NEB PRN (00:46)
[2018-09-05 05:30] LABS: VENOUS PH 7.42 (7.32-7.42)
[2018-09-05 05:41] LABS: Hematocrit [HCT] 33.1 % (37.0-47.0); Hemoglobin [HGB] 10.5 g/dL (12.0-16.0); MEAN CORPUSCULAR HEMOGLOBIN 29.9 PG (27-31); MEAN CORPUSCULAR HGB CONC 31.7 g/dL (33-37); MEAN CORPUSCULAR VOLUME 94.3 FL (81-99); MEAN PLATELET VOLUME 8.4 FL (7.4-12.2); RED BLOOD COUNT 3.51 10^6/uL (4.20-5.40)
[2018-09-05] MEDS: IPRATROPIUM/ALBUTEROL SULFATE 3 ML NEB NEB SCH ×4 (06:25→18:51)
[2018-09-05 06:29] LABS: BAND NEUTROPHILS % 0 % (0-10); BASOPHILS % (MANUAL) 0 % (0-1); EOSINOPHILS % (MANUAL) 0 % (0-8); MONOCYTES % (MANUAL) 3 % (0-12); NEUTROPHILS % (MANUAL) 87 % (50-80)
[2018-09-05 06:30] LABS: PLATELET MORPHOLOGY COMMENT NORMAL MORPHOLOGY (NORM); RBC MORPHOLOGY COMMENT NORMAL MORPHOLOGY (NORM); WBC MORPHOLOGY COMMENT SEE COMMENTS (NORM)
[2018-09-05] MEDS ORDERED: fentaNYL 75 MCG/HR PATCH TRANSDERM SCH (08:00)
--- NOTE | 2018-09-05 08:42 | PDOC(PROG) ---
Date of Service: 09/05/18 Time of Service: 08:45 Interval History: Subjective Patient said that she is coughing stuff up. She is having though difficulty in bring things up. She feels overall 60% improvement compared to when she came in. Her shortness of breath is better. Objective : Data - Labs CBC and BMP: 09/05/18 05:21 09/04/18 04:54 Objective : Exam - General General Appearance: No Acute Distress, Cooperative, Thin - Head Head Exam: Normal Inspection - Eye Eye Exam: Normal Appearance - ENT ENT Exam: Normal Exam - Neck Neck Exam: Normal Inspection - Respiratory Additional Respiratory Exam Details: Decreased air entry with few expiratory wheezes heard - Cardiovascular Cardiovascular Exam: RRR - GI/Abdominal GI/Abdominal Exam: Normal Bowel Sounds, Non Tender, Non Distended, Soft, No Organomegaly - Rectal Rectal Exam: Deferred - External Exam: Deferred Exam: Deferred - Extremities Extremities Exam: Normal Inspection - Neurological Neurological Exam: Alert, CN II-XII Intact, No Facial Droop, Speech Intact / Clear, Moves All Extremities Equally - Psychiatric Psychiatric Exam: Normal Affect Assessment and Plan - Patient Problems (1) COPD exacerbation Current Visit: Yes Status: Acute Comment: Continue steroids, antibiotics and bronchodilator. We'll ask PT and OT to work with her. Code(s): J44.1 - Chronic obstructive pulmonary disease with (acute) exacerbation (2) Anxiety Current Visit: Yes Status: Acute Comment: Continue Ativan as needed Code(s): F41.9 - Anxiety disorder, unspecified (3) Chronic pain syndrome Current Visit: No Status: Acute Comment: Continue fentanyl Code(s): G89.4 - Chronic pain syndrome (4) Respiratory acidosis Current Visit: Yes Status: Acute Comment: Seems to be resolved Code(s): E87.2 - Acidosis (5) History of atrial fibrillation Current Visit: Yes Status: Acute Comment: Continue same medication including metoprolol and eliquis. Code(s): Z86.79 - Personal history of other diseases of the circulatory system (6) Gram-positive bacteremia Current Visit: Yes Status: Acute Comment: There is gram-positive organisms in the blood culture not sure this is a true infection or contaminant. Grew in one set. Continue Zithromax and vancomycin for now. Code(s): R78.81 - Bacteremia
[2018-09-05] MEDS ORDERED: AZITHROMYCIN 250 MG TABLET PO SCH (09:00)
[2018-09-05] MEDS: fentaNYL 75 MCG/HR PATCH TRANSDERM SCH (09:16)
[2018-09-05] MEDS: ACETAMINOPHEN 325 MG TABLET PO PRN (09:17)
[2018-09-05] MEDS: CHOLECALCIFEROL 1000 IU TABLET PO SCH (09:19)
[2018-09-05] MEDS: LORATADINE 10 MG TABLET PO SCH (09:19)
[2018-09-05] MEDS: CALCIUM CARBONATE 500 MG (TUMS) CHEWABLE TABLET PO SCH ×2 (09:19→20:52)
[2018-09-05] MEDS: IRON POLYSACCHARIDES COMPLEX 150 MG CAPSULE PO SCH ×2 (09:19→20:43)
[2018-09-05] MEDS: Apixaban Tab 2.5 MG TABLET PO SCH ×2 (09:19→20:43)
[2018-09-05] MEDS: GUAIFENESIN 600 MG TABLET PO SCH (09:45)
[2018-09-05] MEDS ORDERED: Pneumococcal Vacc 13 Syringe 0.5 ML DISP.SYRIN IM ONE (17:39)
[2018-09-05] MEDS ORDERED: Influenza 18-19 Vaccine (6mo+) 60 MCG/0.5 ML SYRINGE IM ONE (17:42)
[2018-09-05] MEDS: GABAPENTIN 300 MG CAPSULE PO SCH (20:43)
[2018-09-06] MEDS: methylPREDNISolone 125 MG/2 ML VIAL IVP SCH ×3 (00:45→20:30)
[2018-09-06] MEDS: ALBUTEROL SULFATE 2.5 MG/3 ML NEB PRN ×2 (00:55→04:56)
[2018-09-06] MEDS: IPRATROPIUM/ALBUTEROL SULFATE 3 ML NEB NEB SCH ×4 (06:16→18:58)
[2018-09-06] MEDS: LORazepam 1 MG TABLET PO PRN (07:02)
[2018-09-06] MEDS: GUAIFENESIN 600 MG TABLET PO SCH (08:20)
[2018-09-06] MEDS: CALCIUM CARBONATE 500 MG (TUMS) CHEWABLE TABLET PO SCH ×2 (08:21→20:31)
[2018-09-06] MEDS: Apixaban Tab 2.5 MG TABLET PO SCH ×2 (08:21→20:31)
[2018-09-06] MEDS: LORATADINE 10 MG TABLET PO SCH (08:21)
[2018-09-06] MEDS: IRON POLYSACCHARIDES COMPLEX 150 MG CAPSULE PO SCH ×2 (08:21→20:31)
[2018-09-06] MEDS: CHOLECALCIFEROL 1000 IU TABLET PO SCH (08:21)
[2018-09-06] MEDS: ACETAMINOPHEN 325 MG TABLET PO PRN ×2 (08:24→20:33)
--- NOTE | 2018-09-06 09:58 | OTI REPORT ---
Thank you for the referral of Carissa Marquez. She was seen on 09/05/18 for an occupational therapy inpatient evaluation secondary to weakness. SUBJECTIVE: The patient is a 73-year-old female. The patient reports she is feeling okay. She is wishing that she could return home. The patient reports that at prior level of function she was independent in all ADLs to include lower extremity dressing, upper extremity dressing, showering, and functional mobility around her home with use of a cane. She also did chores outside to include feeding her chickens. The patient did report that she was on oxygen. Her home set up includes five steps to the entrance of her home with handrails. The patient does have a tub/shower combo in her house and she does have adaptive equipment to include a shower chair and a toilet riser secondary to past hip surgeries. PAST MEDICAL HISTORY: Past medical history can be found in the patient's medical record. OBJECTIVE FINDINGS: Bed mobility: The patient demonstrated the ability to move from sitting propped up in bed to edge of bed independently. Oxygen: The patient's oxygen saturation did drop upon moving to edge of bed and she required a longer rest break as well as instruction in pursed lipped breathing to maintain oxygen saturation. Transfers: The patient was able to transfer from sit to stand from edge of bed. The patient did pull from the walker instead of pushing from the chair. The patient was able to stand x2 minutes before taking a rest break with pursed lipped breathing techniques. Ambulation: The patient ambulated x5 feet at which point her oxygen saturation did drop to 83%. The patient did require a 3-4 minute rest break. She then walked another 5 feet and her oxygen saturation dropped to 85%. ASSESSMENT: The patient tolerated OT assessment fair. The patient did require frequent rest breaks today and education in pursed lipped breathing techniques and very close monitoring of her oxygen levels. Problem List: Energy conservation Generalized weakness ADL performance Safety Short-Term Goals: To be met by discharge from inpatient: Patient will increase activity tolerance/standing balance to tolerate standing x8 minutes to complete standing grooming tasks with zero losses of balance prior to return home. Patient will increase bilateral upper extremity strength by one manual muscle grade. Patient will demonstrate the use of two energy conservation techniques independently with no verbal cues required. Patient will demonstrate the ability to complete entire dressing routine with rest breaks and adaptive equipment as needed to include lower and upper extremity dressing. Patient will complete all functional mobility and functional transfers to include chair/toilet/bed transfers with contact guard assist only for safety. Patient will demonstrate the ability to complete a safe shower transfer and complete a seated showering task with contact guard assist only prior to discharge to home. Long-Term Goals: To be met following discharge from inpatient: Patient may be seen by outpatient physical therapy upon discharge to home for continued strengthening. TREATMENT PLAN: Patient will be seen B.I.D during the week and one time per day over the weekend as an inpatient to address the above goals and objectives. INITIAL TREATMENT: Treatment today consisted of the initial evaluation only. The patient was educated in energy conservation techniques to include pursed lipped breathing. Following treatment session the patient was left upright in bed with oxygen in place, call light in place, and one bed rail up per her request. Nursing was notified. YURIDIA
--- NOTE | 2018-09-06 10:49 | PDOC(PROG) ---
Date of Service: 09/06/18 Time of Service: 11:00 Interval History: Subjective Feels better, shortness of breath is improving. She brings up more phlegm now. He said she thinks she had may be 75% improvement compared to when she came in. Objective : Data - Labs CBC and BMP: 09/05/18 05:21 09/04/18 04:54 Objective : Exam - General General Appearance: No Acute Distress, Cooperative, Thin - Head Head Exam: Normal Inspection - Eye Eye Exam: Normal Appearance - ENT ENT Exam: Normal Exam - Neck Neck Exam: Normal Inspection - Respiratory Additional Respiratory Exam Details: Decreased air entry seems to be more clear today. The wheezing seemed to be less. - Cardiovascular Cardiovascular Exam: RRR - GI/Abdominal GI/Abdominal Exam: Normal Bowel Sounds, Non Tender, Non Distended, Soft, No Organomegaly - Rectal Rectal Exam: Deferred - External Exam: Deferred Exam: Deferred - Extremities Extremities Exam: Normal Inspection - Back Back Exam: Normal Inspection - Neurological Neurological Exam: Alert, Oriented x 3, CN II-XII Intact, Speech Intact / Clear, Moves All Extremities Equally - Psychiatric Psychiatric Exam: Normal Affect Assessment and Plan - Patient Problems (1) COPD exacerbation Current Visit: Yes Status: Acute Comment: I think she is improving she started cutting back on her steroid. They will take the catheter out patient hopefully will be able to do more with physical therapy. Continue bronchodilator and Zithromax. We'll DC the vancomycin. Code(s): J44.1 - Chronic obstructive pulmonary disease with (acute) exacerbation (2) Anxiety Current Visit: Yes Status: Acute Comment: Continue Ativan Code(s): F41.9 - Anxiety disorder, unspecified (3) Chronic pain syndrome Current Visit: No Status: Acute Comment: Continue fentanyl Code(s): G89.4 - Chronic pain syndrome (4) Respiratory acidosis Current Visit: Yes Status: Acute Comment: This is resolved Code(s): E87.2 - Acidosis (5) History of atrial fibrillation Current Visit: Yes Status: Acute Comment: She is on anticoagulant Code(s): Z86.79 - Personal history of other diseases of the circulatory system (6) Gram-positive bacteremia Current Visit: Yes Status: Acute Comment: The stent to be staph epidermidis will DC the vancomycin. Code(s): R78.81 - Bacteremia (7) Hypertension Current Visit: Yes Status: Acute Comment: Blood pressure seem to be elevated, may be the steroid is playing part in it, will give her a small dose of losartan and start cutting back on the steroid and continue to watch her blood pressure. Code(s): I10 - Essential (primary) hypertension
--- NOTE | 2018-09-06 11:56 | PTI REPORT ---
Thank you for the referral of Carissa Marquez. She was seen on 09/05/18 for an inpatient evaluation secondary to generalized weakness. SUBJECTIVE: The patient is a 73-year-old female. The patient reports she is feeling okay. She is wishing that she could return home. The patient reports that at prior level of function she was independent in all ADLs to include lower extremity dressing, upper extremity dressing, showering, and functional mobility around her home with use of a cane. She also did chores outside to include feeding her chickens. The patient did report that she was on oxygen. Her home set up includes five steps to the entrance of her home with handrails. The patient does have a tub/shower combo in her house and she does have adaptive equipment to include a shower chair and a toilet riser secondary to past hip surgeries. The patient reports she doesn't feel like she is going to get any better or feel comfortable until she gets to go home. PAST MEDICAL HISTORY: Past medical history can be found in the patient's medical record. OBJECTIVE FINDINGS: General observations: The patient was on 5 liters of oxygen via high flow nasal cannula with her oxygen saturation noted anywhere between 79-89% both in supine as well as a seated position. She required constant verbal cues for pursed lipped breathing. Bed mobility: The patient required moderate assistance to perform bed mobility from supine to edge of bed, specifically for the lower extremities and manipulation of her cords. The patient was able to perform bed mobility from edge of bed to supine with verbal cues only. Range of motion/Strength: Her bilateral lower extremity range of motion is within functional limits with strength at best of 3+/5. Transfers: The patient was able to perform a sit to stand transfer with gait belt and stand by assistance, again with verbal cues for proper hand placement as well as pursed lipped breathing. While standing, her oxygen did drop down to 79% saturation; however, following deep breathing activities this did raise to 87%. Ambulation: The patient was able to ambulate 5 feet within her room with a front wheeled walker as provided by the hospital, gait belt, and contact guard assistance followed by a 3-4 minute seated rest break for her oxygen saturation to increase as well as for the patient to rest. She then ambulated 5 feet back to the edge of the bed. ASSESSMENT: Problem List: Decreased endurance Decreased strength Inability to maintain an appropriate saturation of oxygen level with activity Physical Therapy Goals: To be met by discharge from inpatient: Patient will be able to ambulate up to 100 feet with appropriate assistive device and oxygen maintaining at least 90% oxygen saturation for household ambulation. Patient will increase strength to at least 4-/5 for ambulatory, bed mobility, and transfer activities. TREATMENT PLAN: Patient will be seen B.I.D during the week and one time per day over the weekend as an inpatient to address the above goals and objectives. INITIAL TREATMENT: Treatment today consisted of the initial evaluation followed by the patient ambulating from edge of bed x5 feet and having a seated rest break before ambulating back to the edge of bed. The patient also performed standing static activities focusing on pursed lipped breathing and sitting unsupported edge of bed. YURIDIA
[2018-09-06] MEDS: LOSARTAN 25 MG TABLET PO SCH (12:12)
--- NOTE | 2018-09-06 16:26 | PT AM DAY ---
Diagnosis : Weakness AM - Physical Therapy S: The patient states she is doing better this morning and is willing to participate in therapy. The patient is on 5 liters of oxygen. O: The patient performed a supine to seated edge of bed transfer with stand by assist x1 for safety. The patient demonstrated good seated edge of bed balance. A gait belt was placed around the patient and she performed a sit to stand transfer with stand by assist x1 for safety. The patient ambulated 15 feet to the sink where she washed her face and worked on standing balance. The patient then ambulated back to her bed and performed a stand to seated transfer safely. While seated edge of bed the patient performed alternating long arc quads x10, alternating marches x10, and ankle pumps x10. The patient was left with occupational therapy. A: The patient tolerated exercises and transfers better while maintaining her oxygen saturation at a more appropriate level today. The patient is very anxious and would like to return home; although we still need to make sure that on her 5 liters of oxygen she can perform stairs in order to get into and out of her home. P: Continue seeing patient BID during the week and one time per day over the weekend for transfers, ambulation, and range of motion/strengthening exercises. MTDD
--- NOTE | 2018-09-06 17:01 | OT.PROG ---
Progress Note Progress Note: S: pt stated that she was feeling okay. O: tx consisted of hand and face washing at sink with SBA for safety, AROM of UEs in all planes of motion x 10 each. A: pt did well during session. pt was tired afterwards but did well. P: continue POC
--- NOTE | 2018-09-06 17:07 | OT.PROG ---
Progress Note Progress Note: Occupational Therapy S: Pt. reports that she is feeling better today. She agrees to participate in therapy session and is hoping to return home soon. O: Pt. completed skilled therapy session on 6 L of o2 today. Pt. demonstrated the ability to independently move from sitting upright in bed to EOB and completed LE dressing to include donning of briefs and socks with SBA. She then completed a functional sit to stand transfer with CGA and a standard walker and tolerated standing X 2 min. with O2 dropping to 88%. Pt. was educated in pursed lip breathing techniques and was able to complete them with 1 verbal cue. Following OT session, pt. demonstrated the ability to complete bed mobility independently. Pt. was left with call light and o2 in place. A: Pt. tolerated therapy well today and maintained o2 better than yesterday. She completed LE dressing independently and may benefit from continued therapy to in crease activity tolerance, energy conservation techniques and safety. P: Continue POC. SHAINA No/Nicholas
[2018-09-06] MEDS: GABAPENTIN 300 MG CAPSULE PO SCH (20:31)
[2018-09-07] MEDS: IPRATROPIUM/ALBUTEROL SULFATE 3 ML NEB NEB SCH ×4 (06:10→18:29)
[2018-09-07] MEDS: methylPREDNISolone 125 MG/2 ML VIAL IVP SCH (07:58)
[2018-09-07] MEDS: LOSARTAN 25 MG TABLET PO SCH (07:58)
--- NOTE | 2018-09-07 08:14 | PDOC(PROG) ---
Date of Service: 09/07/18 Time of Service: 08:15 Interval History: Subjective Feels better. Her cough seem to be less today. Objective : Data - Labs CBC and BMP: 09/05/18 05:21 09/04/18 04:54 Objective : Exam - General General Appearance: No Acute Distress, Cooperative - Head Head Exam: Normal Inspection - Eye Eye Exam: Normal Appearance - ENT ENT Exam: Normal Exam - Neck Neck Exam: Normal Inspection - Respiratory Additional Respiratory Exam Details: Decreased air entry. I don't hear wheezing today. - Cardiovascular Cardiovascular Exam: RRR - GI/Abdominal GI/Abdominal Exam: Normal Bowel Sounds, Non Tender, Non Distended, Soft, No Organomegaly - Rectal Rectal Exam: Deferred - External Exam: Deferred Exam: Deferred - Extremities Extremities Exam: Normal Inspection - Back Back Exam: Normal Inspection - Neurological Neurological Exam: Alert, Oriented x 3, CN II-XII Intact, No Facial Droop, Speech Intact / Clear - Psychiatric Psychiatric Exam: Normal Affect - Integumentary Integumentary Exam: Normal Color Assessment and Plan - Patient Problems (1) COPD exacerbation Current Visit: Yes Status: Acute Comment: She is improving. I think I'll cut on the steroid more today. Likely will switch her to by mouth steroids tomorrow. Continue antibiotics probably switch her to by mouth tomorrow. I think we'll switch her to swing bed tomorrow. Initially she was resistant to the idea of a swing bed but then she accepted. Code(s): J44.1 - Chronic obstructive pulmonary disease with (acute) exacerbation (2) Anxiety Current Visit: Yes Status: Acute Comment: She is on Ativan as needed Code(s): F41.9 - Anxiety disorder, unspecified (3) Chronic pain syndrome Current Visit: No Status: Acute Comment: She is on fentanyl Code(s): G89.4 - Chronic pain syndrome (4) Respiratory acidosis Current Visit: Yes Status: Acute Comment: This is resolved Code(s): E87.2 - Acidosis (5) History of atrial fibrillation Current Visit: Yes Status: Acute Comment: she is on eliquis Code(s): Z86.79 - Personal history of other diseases of the circulatory system (6) Gram-positive bacteremia Current Visit: Yes Status: Acute Comment: The growth was staph epidermidis. We DC the vancomycin. Code(s): R78.81 - Bacteremia (7) Hypertension Current Visit: Yes Status: Acute Comment: Blood pressure still elevated I'll increase the losartan. Hopefully as we decrease the steroid that would help lowering her blood pressure also Code(s): I10 - Essential (primary) hypertension
[2018-09-07] MEDS: ALBUTEROL SULFATE 2.5 MG/3 ML NEB PRN ×2 (08:53→21:48)
[2018-09-07] MEDS: CHOLECALCIFEROL 1000 IU TABLET PO SCH (09:17)
[2018-09-07] MEDS: CALCIUM CARBONATE 500 MG (TUMS) CHEWABLE TABLET PO SCH (09:17)
[2018-09-07] MEDS: Apixaban Tab 2.5 MG TABLET PO SCH ×2 (09:17→21:00)
[2018-09-07] MEDS: LORATADINE 10 MG TABLET PO SCH (09:17)
[2018-09-07] MEDS: IRON POLYSACCHARIDES COMPLEX 150 MG CAPSULE PO SCH ×2 (09:17→21:01)
[2018-09-07] MEDS: GUAIFENESIN 600 MG TABLET PO SCH (09:17)
[2018-09-07] MEDS ORDERED: CALCIUM CARBONATE 500 MG (TUMS) CHEWABLE TABLET PO PRN (17:59)
[2018-09-07] MEDS: ACETAMINOPHEN 325 MG TABLET PO PRN (18:04)
[2018-09-07] MEDS: GABAPENTIN 300 MG CAPSULE PO SCH (21:00)
[2018-09-07] MEDS ORDERED: methylPREDNISolone 125 MG/2 ML VIAL IVP SCH (21:00)
[2018-09-07] MEDS: LORazepam 1 MG TABLET PO PRN (21:45)
[2018-09-08] MEDS: CALCIUM CARBONATE 500 MG (TUMS) CHEWABLE TABLET PO SCH ×2 (00:28→08:09)
[2018-09-08] MEDS: ALBUTEROL SULFATE 2.5 MG/3 ML NEB PRN ×2 (05:36→09:36)
[2018-09-08 05:48] LABS: BLOOD UREA NITROGEN 23 mg/dL (7-22); BUN/CREATININE RATIO 32.85 (6-20)
[2018-09-08] MEDS ORDERED: PANTOPRAZOLE 40 MG TABLET PO SCH ×2 (07:00→08:00)
[2018-09-08] MEDS ORDERED: LOSARTAN 25 MG TABLET PO SCH (07:00)
[2018-09-08] MEDS: IPRATROPIUM/ALBUTEROL SULFATE 3 ML NEB NEB SCH (07:09)
[2018-09-08] MEDS ORDERED: AZITHROMYCIN 250 MG TABLET PO SCH (08:00)
[2018-09-08] MEDS: fentaNYL 75 MCG/HR PATCH TRANSDERM SCH (08:01)
[2018-09-08] MEDS: Apixaban Tab 2.5 MG TABLET PO SCH (08:01)
[2018-09-08] MEDS: IRON POLYSACCHARIDES COMPLEX 150 MG CAPSULE PO SCH (08:02)
[2018-09-08] MEDS: LORATADINE 10 MG TABLET PO SCH (08:02)
[2018-09-08] MEDS: GUAIFENESIN 600 MG TABLET PO SCH (08:02)
[2018-09-08] MEDS: CHOLECALCIFEROL 1000 IU TABLET PO SCH (08:02)
--- NOTE | 2018-09-08 08:02 | DCSUMMARY ---
Hospitalization Summary Admit Date: 09/03/2018 Discharge Date: 09/08/18 Hospital Course: Discharge diagnoses 1. Acute on chronic respiratory failure, secondary to COPD exacerbation 2. COPD exacerbation 3. Hypertension 4. Chronic pain syndrome 5. GERD 6. Anxiety Hospital course This is a 73 years old female with medical history significant for history of COPD, anxiety who presented to the hospital with history of shortness of breath she woke up the morning she presented with shortness of breath. There was also cough and phlegm production. Because of all the symptoms she came into the ER evaluation revealed CO2 retention and so she was put on BiPAP and was given steroid and antibiotics and then she was admitted to the hospital by Dr. Vinson please see his note. With antibiotics, steroid and bronchodilator treatment things started to improve. Her CO2 level decreased. Her symptoms gradually also improved . However, she remained weak and we thought that she needs extra time to recover from this illness. we discussed with her the option of switching to swing bed to continue physical therapy here and she was agreeable to that. patient status was changed to swing bed status we'll gradually decrease steroid and continue Zithromax and bronchodilator treatment. Her blood pressure was high when she was here so we did start her on losartan, the rise in her blood pressure may be secondary to the steroid.. We'll follow-up on her numbers and then will decide if we need to adjust the dosage further during her hospital stay. Laboratory Results 09/08/18 05:25 Sodium 135 Potassium 4.6 Chloride 100 Carbon Dioxide 33 Anion Gap 2 L BUN 23 H Creatinine 0.7 BUN/Creatinine Ratio 32.85 H Glucose 101 Calculated Osmolality 283.0 Calcium 9.0 Discharge instruction Diet regular Activity as tolerated Medications Active Medications Acetaminophen (Tylenol) 650 mg PO Q6H PRN PRN Reason: Pain Last Admin: 09/07/18 18:04 Dose: 650 mg Documented by: Albuterol Sulfate (Albuterol Neb Soln 0.083%) 2.5 mg NEB RTQ2H PRN PRN Reason: Shortness of Breath Last Admin: 09/08/18 05:36 Dose: 2.5 mg Documented by: Albuterol/Ipratropium (Duoneb Neb Soln) 3 ml NEB RTQID THOR Last Admin: 09/08/18 07:09 Dose: Not Given Documented by: Apixaban (Eliquis) 2.5 mg PO BID [facility] Last Admin: 09/08/18 08:01 Dose: 2.5 mg Documented by: Azithromycin (Zithromax) 250 mg PO DAILY [facility]; Taper Stop: 09/13/18 07:57 Calcium Carbonate (Tums) 1 tab PO BID [facility] Last Admin: 09/08/18 08:09 Dose: 1 tab Documented by: Calcium Carbonate (Tums) 2 tab PO Q4H PRN PRN Reason: Heartburn Last Admin: 09/07/18 18:04 Dose: 2 tab Documented by: Cholecalciferol (Vitamin D3) 1,000 iu PO DAILY [facility] Last Admin: 09/08/18 08:02 Dose: 1,000 iu Documented by: Fentanyl (Duragesic Patch 75mcg) 1 patch TRANSDERM Q72H [facility] Last Admin: 09/08/18 08:01 Dose: 1 patch Documented by: Gabapentin (Neurontin) 300 mg PO BEDTIME [facility] Last Admin: 09/07/18 21:00 Dose: 300 mg Documented by: Guaifenesin (Mucinex Er Tab) 600 mg PO DAILY [facility] Last Admin: 09/08/18 08:02 Dose: 600 mg Documented by: Sodium Chloride (Normal Saline 0.9%) 25 mls @ 200 mls/hr IV .Post Infusion PRN PRN Reason: No Primary IV for Flush ONLY Last Admin: 09/05/18 21:36 Dose: 200 mls/hr Documented by: Lidocaine HCl (Lidocaine Buffered Inj) 0.5 ml SUBD ONCE PRN PRN Reason: IV Starts Loratadine (Claritin) 10 mg PO DAILY [facility] Last Admin: 09/08/18 08:02 Dose: 10 mg Documented by: Lorazepam (Ativan Tab) 1 mg PO Q6H PRN PRN Reason: Anxiety Last Admin: 09/07/18 21:45 Dose: 1 mg Documented by: Losartan Potassium (Cozaar) 25 mg PO EVERY AM [facility] Last Admin: 09/08/18 08:01 Dose: 25 mg Documented by: Meloxicam (Mobic) 15 mg PO DAILY PRN PRN Reason: Pain Pantoprazole Sodium (Protonix) 40 mg PO AC BK [facility] Last Admin: 09/08/18 08:02 Dose: 40 mg Documented by: Polysaccharide Iron Complex (Ferrex 150) 150 mg PO BID [facility] Last Admin: 09/08/18 08:02 Dose: 150 mg Documented by: Prednisone (Deltasone Tab) 40 mg PO DAILY THOR Follow-up patient status will be switched to swing bed status. Exam - Vitals Vital Signs: Vital Signs Temperature 98.1 F Temperature Source Temporal Artery Scan Pulse Rate [Apical] 84 Pulse Rate [Telemetry] 80 Pulse Rate 86 Respiratory Rate 20 Blood Pressure [Right Arm] 148/94 Blood Pressure [Left Arm] 171/111 Blood Pressure 172/99 Pulse Ox 94 Oxygen Flow Rate 4 Oxygen Delivery Method Nasal Cannula Height 5 ft 7 in Weight 103 lb 9.6 oz - General General Appearance: No Acute Distress, Cooperative - Head Head Exam: Normal Inspection - Eye Eye Exam: POSITIVE: Normal Appearance - ENT ENT Exam: POSITIVE: Normal Exam - Neck Neck Exam: Normal Inspection - Respiratory Additional Respiratory Exam Details: Decreased air entry otherwise clear. Chest some better than yesterday - Cardiovascular Cardiovascular Exam: POSITIVE: RRR - GI/Abdominal GI/Abdominal Exam: POSITIVE: Normal Bowel Sounds, Non Tender, Non Distended, Soft, No Organomegaly - Rectal Rectal Exam: POSITIVE: Deferred - External Exam: POSITIVE: Deferred Exam: POSITIVE: Deferred - Extremities Extremities Exam: POSITIVE: Normal Inspection - Back Back Exam: POSITIVE: Normal Inspection - Neurological Neurological Exam: POSITIVE: Alert, Oriented x 3, No Facial Droop, Speech Intact / Clear - Psychiatric Psychiatric Exam: POSITIVE: Normal Affect - Integumentary Integumentary Exam: POSITIVE: Normal Color Patient Problems - Patient Problem List (1) COPD exacerbation Current Visit: Yes Status: Acute Code(s): J44.1 - Chronic obstructive pulmonary disease with (acute) exacerbation Category: Medical (2) Anxiety Current Visit: Yes Status: Acute Code(s): F41.9 - Anxiety disorder, unspecified Category: Medical (3) Chronic pain syndrome Current Visit: No Status: Acute Code(s): G89.4 - Chronic pain syndrome Category: Medical (4) Respiratory acidosis Current Visit: Yes Status: Acute Code(s): E87.2 - Acidosis Category: Medical (5) History of atrial fibrillation Current Visit: Yes Status: Acute Code(s): Z86.79 - Personal history of other diseases of the circulatory system Category: Medical (6) Gram-positive bacteremia Current Visit: Yes Status: Acute Code(s): R78.81 - Bacteremia Category: Medical (7) Hypertension Current Visit: Yes Status: Acute Code(s): I10 - Essential (primary) hypertension Category: Medical
[2018-09-08] MEDS ORDERED: predniSONE Tab 20 MG TAB PO SCH ×2 (08:15→09:00)
[2018-09-08] MEDS ORDERED: AZITHROMYCIN 250 MG TABLET PO ONE ×2 (09:00)
[2018-09-09] MEDS ORDERED: AZITHROMYCIN 250 MG TABLET PO SCH (09:00)
--- NOTE | 2018-09-09 09:12 | PT PM DAY ---
Diagnosis : Weakness PM - Physical Therapy S: The patient states she is doing better this afternoon. She states she will most likely be in the hospital for a couple more days as she is realizing she is not quite ready to return back home. The patient was willing to participate in physical therapy. She did participate in occupational therapy prior to physical therapy. O: Treatment today consisted of the patient performing sit to stand transfer from the bed with stand by assist x1 for safety. The patient demonstrated fair initial standing balance with hand hold assist x2 on the walker. While the patient was on 6 liters of oxygen she ambulated 50 feet before requiring a seated rest break. The patient rested x2 minutes in wheelchair and then ambulated x100 feet without a rest break with contact guard assist x1 for safety and use of standard walker. Once we were back in the patient's room, her oxygen saturation was at 88% following ambulation activity. The patient was able to recover within 30 seconds back up to 97%. The patient then transferred back into bed with stand by assist x1 for safety. A: The patient tolerated exercise much better this afternoon and was able to ambulate a total of 150 feet with one seated rest break. The patient reports that she is feeling better and would like to continue to work on her strength and endurance so that she is safe to return back home. P: Continue seeing patient BID during the week and one time per day over the weekend for transfers, ambulation, and range of motion/strengthening exercises. YURIDIA
--- NOTE | 2018-09-09 09:40 | PT AM DAY ---
Diagnosis : Weakness AM - Physical Therapy S: The patient reports no new changes. O: The patient was seen for some light theraband strengthening exercises. We worked on bed mobility, transfers, and ambulation around the nurse's station without having to rest; although we did slow her down to keep her oxygen saturation above 85%. A: The patient did very well this morning, much better than yesterday. She was moved to room 310. P: Continue seeing patient BID during the week and one time per day over the weekend for transfers, ambulation, and range of motion/strengthening exercises. MTDD
--- NOTE | 2018-09-09 09:56 | PT AM DAY ---
Diagnosis : Weakness AM - Physical Therapy S: The patient was alert and oriented this morning. She is coughing a little more with expectorant from the lungs. She is still on 5 liters of oxygen. O: The patient was seen in her room today. She did ambulate around the nurse's station x1.5 laps and performed light upper and lower extremity strengthening with theraband at her pace, keeping her oxygen saturation as stable as possible. A: The patient is very cooperative and very willing to participate in all that is asked of her. P: Continue seeing patient BID during the week and one time per day over the weekend for transfers, ambulation, and range of motion/strengthening exercises. MTDD
[2018-09-13 16:39] VITALS: RESP 24; O2SAT 98
[2018-09-13 16:40] VITALS: BP 171/111; TEMP 98.1
== END 2018-09-08 10:16 | disposition swing bed (61) | DRG 189 ==
LOC: ER 08:00 → ICU 09:54 → EDSTATUS 12:54 → MED/SURG 09-04 08:21
PROVIDERS: ADMIT Family Medicine; ATTEND Internal Medicine

== ENCOUNTER 2019-01-15 22:14 | Inpatient (IN) ==
[2019-01-15] MEDS ORDERED: IPRATROPIUM/ALBUTEROL SULFATE 3 ML NEB NEB ONE ×3 (22:21→22:24)
[2019-01-15] MEDS ORDERED: Sodium Chloride 0.9% 1,000 ML PRIMARY IV ONE (22:24)
[2019-01-15] MEDS ORDERED: methylPREDNISolone 125 MG/2 ML VIAL IVP ONE (22:24)
--- NOTE | 2019-01-15 22:39 | PDOC ---
Dyspnea HPI - General Chief Complaint: Respiratory Complaint Stated Complaint: RESPIRATORY DISTRESS Date Seen by Provider: 01/15/19 Time Seen by Provider: 22:25 Source: POSITIVE: Patient, Spouse Exam Limitations: POSITIVE: No limitations Treatment Prior to Arrival: REPORTS: Oxygen (Baseline 3 L), Albuterol Neb Treatment (Approximately 1 hour prior to arrival) Nurse's Notes Reviewed & Considered: Yes - History of Present Illness Initial Comments: The patient is a 73-year-old female with a known history of COPD who presents to the emergency department with increased difficulty breathing. She states that this has primarily worsened tonight. She does report associated productive cough and she did have a fever here of 101. She used her albuterol neb treatment last approximately an hour ago. She is normally on 3 L of oxygen. When nursing staff retrieve the patient from her vehicle her oxygen saturations were in the 70s on her baseline 3 L. She denies any current chest pain, pain or swelling in her extremities. She does have a history of intermittent atrial fibrillation and is anticoagulated with eliquis. - Patient Home Medications Home Medications: Home Medications Calcium Carbonate [Natural Calcium] 600 mg PO BID 01/14/13 Cholecalciferol (Vitamin D3) [Vitamin D3] 1 cap PO DAILY #0 cap 01/14/13 fexofenadine 180 mg tablet 180 mg PO QD tab 07/13/17 gabapentin 300 mg capsule 300 mg PO QHS #30 cap 06/11/18 denosumab 60 mg/mL subcutaneous syringe 60 mg SUBCUT [id number] #1 ml 07/30/18 albuterol sulfate HFA 90 mcg/actuation aerosol inhaler 1 - 2 puff INH Q4-6H PRN #1 inhaler 08/20/18 fluticasone fur. 100 mcg-umeclid 62.5 mcg-vilant 25 mcg inhalat.powder 1 inh INH QDAY #28 ea 11/11/18 apixaban 2.5 mg tablet 2.5 mg PO BID #60 tab 01/06/19 fentanyl 75 mcg/hr transdermal patch 75 mcg TRANSDERM Q72H #10 patch 01/06/19 meloxicam 15 mg tablet 15 mg PO QDAY PRN #30 tab 01/06/19 polysaccharide iron complex 150 mg iron capsule 150 mg PO BID #60 cap 01/09/19 - Patient Allergies Allergies/Adverse Reactions: Allergies Allergy/AdvReac Type Severity Reaction Status Date / Time Penicillins Allergy Severe Anaphylaxis Verified 11/11/18 11:07 Sulfa (Sulfonamide Allergy Intermediate RASH Verified 11/11/18 11:07 Antibiotics) alendronate sodium AdvReac Intermediate SHORTNESS Verified 11/11/18 11:07 [From Fosamax] OF BREATH Past Medical History - heen HEENT History: Dentures/Partials, Other (please comment) Additional HEENT History: WEARS GLASSES, upper and lower dentures Cardiovascular History: Other (please comment) Additional Cardiovasular History: Atrial fibrillation Respiratory History: COPD, Snoring Additional Respiratory History: QUIT SMOKING 06/2016 Gastrointestinal History: Denies History Genitourinary History: Denies History Endocrine History: Denies History Musculoskeletal History: Arthritis, Osteoporosis, Joint Pain Prosthesis or Implant: Yes (RIGHT HIP HARDWARE) Additional Musculoskeletal History: CHRONIC LEFT HIP PAIN. L PELVIC FRACTURE Neurological History: Migraines Blood Disorders: Denies History Psychiatric History: Depression History of Sexually Transmitted Diseases: No Cancer History: Denies History In Past Year Been Physically Harmed or Verbally Threatened: No History of MDRO: Yes Type of MDRO: MRSA History of Other Communicable Diseases: No Tobacco Use: Former Smoker Alcohol Use: Rarely In the Past 12 Months, Have Used or Abuse Any Substance: None Previous Surgical History: Yes Type / Date of Surgery: LEFT HIP SURGERY X2, RIGHT HIP REPLACEMENT, LEFT FOOT SURGERY, FULL HYSTERECTOMY Anesthesia Reactions: No Malignant Hyperthermia: No Significant Family History: No pertinent family hx Additional Family History: Renal/skin Past Medical History Reviewed: Reviewed - No Changes ROS - Limitations ROS Limitations: No Limitations Constitution: REPORTS: Fever, Weakness. DENIES: Chills Cardiovascular: DENIES: Chest Pain Respiratory: REPORTS: Cough Productive (Green phlegm), Shortness Of Breath, Wheezing Neurological: REPORTS: Denies Neuro Symptoms Gastrointestinal: REPORTS: Denies GI Symptoms Musculoskeletal: DENIES: Lower Extremity Swelling Eyes: REPORTS: Denies Symptoms ENT: REPORTS: Denies Symptoms Skin: DENIES: Rash Dyspnea Physical Exam - General Appearance General Appearance: REPORTS: Alert, Other (The patient talks in 2-3 word sentences and appears to be in mild respiratory distress and arrival with increased tachypnea and purse lipped breathing) - HEENT HEENT: POSITIVE: Head Inspection Nml, Eyes Inspection Nml, Ears Inspection Nml, Nose Inspection Nml, Pharynx Inspect. Nml - Neck Neck: REPORTS: Normal Inspection. 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 Lab Results Reviewed by Me: Yes CBC and BMP: 01/15/19 22:20 01/15/19 22:20 Lab Results:: Laboratory Results 01/15/19 01/15/19 01/15/19 22:20 22:20 22:20 WBC 11.19 H RBC 4.19 L Hgb 13.0 Hct 38.6 MCV 92.1 MCH 31.0 MCHC 33.7 RDW Std Deviation 48.6 RDW Coeff of El 14.9 H Plt Count 255 MPV 9.0 Immature Gran % (Auto) 0.2 Neut % (Auto) 66.0 Lymph % (Auto) 18.9 [place] % (Auto) 11.7 Eos % (Auto) 2.9 Baso % (Auto) 0.3 Immature Gran # (Auto) 0.02 Neut # (Auto) 7.39 Lymph # (Auto) 2.12 [place] # (Auto) 1.31 H Eos # (Auto) 0.32 Baso # (Auto) 0.03 WBC Morphology Comment Normal morphology Plt Morphology Comment Normal morphology RBC Morph Comment Normal morphology D-Dimer VBG pH VBG pCO2 VBG HCO3 VBG Base Excess Sodium Potassium Chloride Carbon Dioxide Anion Gap BUN Creatinine BUN/Creatinine Ratio Glucose Calculated Osmolality Lactic Acid Calcium Magnesium 1.9 Total Bilirubin AST ALT Alkaline Phosphatase Troponin I < 0.012 C-Reactive Protein 7.1 H NT-Pro-B Natriuret Pep 196 H Total Protein Albumin Globulin Albumin/Globulin Ratio 01/15/19 01/15/19 01/15/19 22:20 22:20 22:20 WBC RBC Hgb Hct MCV MCH MCHC RDW Std Deviation RDW Coeff of [place] Count MPV Immature Gran % (Auto) Neut % (Auto) Lymph % (Auto) [place] % (Auto) Eos % (Auto) Baso % (Auto) Immature Gran # (Auto) Neut # (Auto) Lymph # (Auto) [place] # (Auto) Eos # (Auto) Baso # (Auto) WBC Morphology Comment Plt Morphology Comment RBC Morph Comment D-Dimer 330 H VBG pH VBG pCO2 VBG HCO3 VBG Base Excess Sodium 138 Potassium 4.7 Chloride 95 L Carbon Dioxide 29 Anion Gap 14 BUN 16 Creatinine 0.8 BUN/Creatinine Ratio 20.00 Glucose 122 H Calculated Osmolality 287.0 Lactic Acid 1.1 Calcium 9.7 Magnesium Total Bilirubin 0.8 AST 25 ALT 25 Alkaline Phosphatase 54 Troponin I C-Reactive Protein NT-Pro-B Natriuret Pep Total Protein 7.8 Albumin 4.8 Globulin 3.1 Albumin/Globulin Ratio 1.50 01/15/19 22:30 WBC RBC Hgb Hct MCV MCH MCHC RDW Std Deviation RDW Coeff of [place] Count MPV Immature Gran % (Auto) Neut % (Auto) Lymph % (Auto) [place] % (Auto) Eos % (Auto) Baso % (Auto) Immature Gran # (Auto) Neut # (Auto) Lymph # (Auto) [place] # (Auto) Eos # (Auto) Baso # (Auto) WBC Morphology Comment Plt Morphology Comment RBC Morph Comment D-Dimer VBG pH 7.39 VBG pCO2 63 H VBG HCO3 38 H VBG Base Excess 13 H Sodium Potassium Chloride Carbon Dioxide Anion Gap BUN Creatinine BUN/Creatinine Ratio Glucose Calculated Osmolality Lactic Acid Calcium Magnesium Total Bilirubin AST ALT Alkaline Phosphatase Troponin I C-Reactive Protein NT-Pro-B Natriuret Pep Total Protein Albumin Globulin Albumin/Globulin Ratio EKG Interpretation:: POSITIVE: Normal Sinus Rhythm, Normal Rate, Normal QRS, Normal ST/T - Patient's Progress MDM / ED Course: The patient was given a DuoNeb shortly after arrival. An IV was established and blood cultures/lactate were drawn with initial IV start. EKG done shortly after arrival shows normal sinus rhythm with no acute ST segment changes. She did have subjective improvement and decreased work of breathing after the DuoNeb administered here in the emergency department. Initial venous blood gas showed a normal pH with a PCO2 of 62. Her blood work reveals a mildly elevated white count at 11,000 and an elevated CRP at 7. Her troponin is normal. D-dimer is elevated at 330. Her respiratory panel is negative for pathogens. Chest x-ray shows COPD with no obvious acute changes. CTA of the chest shows a consolidation in the lower aspect of the right upper lobe with no evidence of PE per radiologist. Clinically the patient presents to the emergency department with productive cough, fever, increased O2 requirement which is consistent with pneumonia/COPD exacerbation. She did receive Solu-Medrol 125 mg IV shortly after arrival. Her chart reports history of anaphylaxis to penicillins. She was therefore started on Levaquin 750 mg IV for treatment of pneumonia. These findings were discussed with the patient and her . I also discussed the patient with Dr. Adame who is agreed to admit the patient for further care. The patient is in agreement with this plan as well. - Consult Counseled: POSITIVE: Patient, Family, RE: Lab Results, RE: Radiology Results, RE: DX Patient Care Time - Estimated PCT Patient Care Time (In Minutes): 30 Vital Signs - Recent Vital Signs Vital Signs: Vital Signs (Last 8 hours) Temp Pulse Pulse Resp BP Pulse Ox 01/15/19 22:44 100.9 F H 106 H 26 H 165/108 92 01/15/19 22:29 104 H 26 H 01/15/19 22:28 104 H 30 H 92 - VS Reviewed Vital Signs Reviewed: Yes Discharge Clinical Impression: Pneumonia, COPD exacerbation Discharge Disposition: Admit to Inpatient Condition: Fair Follow Up With: LUANA DIAZ [Primary Care Provider] - Date Decision to Admit to Inpatient: 01/16/19 Time Decision to Admit to Inpatient: 00:05
--- NOTE | 2019-01-15 22:40 | EKG ---
[address] [address] Measurements Intervals Randall Rate: 98 P: 41 MS: 123 QRS: 62 QRSD: 89 T: 82 QT: 329 QTc: 384 Interpretive Statements SINUS RHYTHM WITH OCCASIONAL SUPRAVENTRICULAR PREMATURE COMPLEXES Compared to ECG 09/03/2018 08:48:48 Sinus tachycardia no longer present Atrial abnormality no longer present Electronically Signed On 01-16-19 08:43:29 MDT by Aquiles Cordova MD [email or web address]
[2019-01-15 22:45] LABS: BASOPHILS # (AUTO) 0.03 10*3/UL; BASOPHILS % (AUTO) 0.3 % (0-1); EOSINOPHILS # (AUTO) 0.32 10*3/UL; EOSINOPHILS % (AUTO) 2.9 % (0-8); Hematocrit [HCT] 38.6 % (37.0-47.0); LYMPHOCYTES # (AUTO) 2.12 10*3/uL; MEAN CORPUSCULAR HGB CONC 33.7 g/dL (33-37); MEAN CORPUSCULAR VOLUME 92.1 FL (81-99); MONOCYTES # (AUTO) 1.31 10*3/UL (0.3-0.8); MONOCYTES % (AUTO) 11.7 % (5-15); NEUTROPHILS # (AUTO) 7.39 10*3/UL; PLATELET MORPHOLOGY COMMENT NORMAL MORPHOLOGY (NORM); RBC MORPHOLOGY COMMENT NORMAL MORPHOLOGY (NORM); RED BLOOD COUNT 4.19 10^6/uL (4.20-5.40); WBC MORPHOLOGY COMMENT NORMAL MORPHOLOGY (NORM)
[2019-01-15 22:47] LABS: VENOUS PH 7.39 (7.32-7.42)
[2019-01-15 22:47] LABS: BLOOD UREA NITROGEN 16 mg/dL (7-22); SERUM ALBUMIN 4.8 g/dL (3.5-4.8)
--- NOTE | 2019-01-15 23:55 | DI ---
EXAM: CT Angiography Chest With Intravenous Contrast CLINICAL HISTORY: Shortness of breath TECHNIQUE: Axial computed tomographic angiography images of the chest with intravenous contrast using pulmonary embolism protocol. MIP reconstructed images were created and reviewed. COMPARISON: CT chest dated 09/03/2018 FINDINGS: Pulmonary arteries: No evidence of pulmonary embolus. Aorta: No thoracic aortic dissection or aneurysm. Lungs: Marked centrilobular emphysema. Focal consolidation seen within the medial lower aspect of the right upper lobe which may represent atelectasis and scarring. An infectious process is not excluded. Pleural space: Unremarkable. No significant effusion. No pneumothorax. Heart: Trace pericardial effusion. No evidence of RV dysfunction. Bones/joints: No acute fracture. No dislocation. Soft tissues: Unremarkable. Lymph nodes: Subcentimeter mediastinal lymph nodes, likely reactive. IMPRESSION: 1. No evidence of pulmonary embolus. 2. Marked centrilobular emphysema. 3. Focal consolidation seen within the medial lower aspect of the right upper lobe which may represent atelectasis and scarring. An infectious process is not excluded.
[2019-01-16] MEDS ORDERED: Levofloxacin (Premix) 750 MG/150 ML PIGGYBACK IV ONE (00:01)
[2019-01-16] MEDS ORDERED: Meloxicam Tab 7.5 MG TABLET PO PRN (00:49)
[2019-01-16] MEDS ORDERED: Levofloxacin (Premix) 750 MG/150 ML PIGGYBACK IV SCH (00:49)
[2019-01-16] MEDS ORDERED: HEPARIN 5000 UNIT/1 ML SUBCUT SCH (00:49)
[2019-01-16] MEDS ORDERED: LIDOCAINE W/ SODIUM BICARB 0.5 ML SYR SUBD PRN (00:49)
[2019-01-16] MEDS: IPRATROPIUM/ALBUTEROL SULFATE 3 ML NEB NEB SCH ×5 (01:22→19:20)
[2019-01-16] MEDS: Apixaban Tab 2.5 MG TABLET PO SCH ×3 (01:25→20:36)
[2019-01-16] MEDS: methylPREDNISolone 40 MG/1 ML VIAL IVP SCH ×4 (01:27→18:50)
[2019-01-16] MEDS: GABAPENTIN 300 MG CAPSULE PO SCH ×2 (01:47→20:36)
--- NOTE | 2019-01-16 08:25 | DI ---
XR CXR 1VW,01/15/2019 10:25 PM: Clinical History: Dyspnea Previous Exam: September 03, 2018 Findings: A single frontal radiograph of the chest are obtained, and demonstrate some subsegmental atelectasis in the left lung base. There is diffuse increased volume. The cardiomediastinum and bony thorax are u nremarkable. Impression: Ms. Disease within the left lung base most likely representing subsegmental atelectasis.
[2019-01-16] MEDS: LORATADINE 10 MG TABLET PO SCH (09:10)
[2019-01-16] MEDS: ASCORBIC ACID Chewable 500 MG TABLET PO SCH (09:10)
--- NOTE | 2019-01-16 09:53 | PDOC ---
HPI - History of Present Illness History of Present Illness: This very nice 73-year-old female with past medical history significant for COPD presented to the ER with the shortness of breath which started last night asso ciated with productive cough and fever. She was satting at about 70% on 3 L which she is on at home. Also has a history of chronic intermittent A. fib and is on anticoagulation. She was found to have a left lower lobe pneumonia and was admitted for pneumonia and COPD exacerbation patient is already improved with her and treatments and feels much better done early this morning and last night Past Medical History Medical History: COPD which is likely end-stage, hypertension, chronic narcotic use with fat no patch secondary to bilateral hip replacements and redos with the chronic pain Surgical History: Bilateral hip replacement 2 chronic pain syndrome Pertinent Family History: The patient states that she is adopted and she does not know her biologic parents' history Past Social History: Used to smoke but quit 3 years ago. for 51 years. Has 3 daughters. Retired and lives here in [address], [place]. One of her daughters has some issues with her kidneys. Tobacco Use: Former Smoker In the Past 12 Months, Have Used or Abuse Any of the Following Substance: None Medication / Allergies Home Medications: Home Medications Medication Instructions Recorded Confirmed Calcium Carbonate [Natural Calcium] 600 mg PO BID 01/14/13 01/15/19 Cholecalciferol (Vitamin D3) 1 cap PO DAILY #0 cap 01/14/13 01/15/19 [Vitamin D3] fexofenadine 180 mg tablet 180 mg PO QD tab 07/13/17 01/15/19 gabapentin 300 mg capsule 300 mg PO QHS #30 cap 06/11/18 01/15/19 denosumab 60 mg/mL subcutaneous 60 mg SUBCUT [id number] #1 ml 07/30/18 01/15/19 syringe albuterol sulfate HFA 90 1 - 2 puff INH Q4-6H PRN #1 inhaler 08/20/18 01/15/19 mcg/actuation aerosol inhaler fluticasone fur. 100 mcg-umeclid 1 inh INH QDAY #28 ea 11/11/18 01/15/19 62.5 mcg-vilant 25 mcg inhalat.powder apixaban 2.5 mg tablet 2.5 mg PO BID #60 tab 01/06/19 01/15/19 fentanyl 75 mcg/hr transdermal 75 mcg TRANSDERM Q72H #10 patch 01/06/19 01/15/19 patch meloxicam 15 mg tablet 15 mg PO QDAY PRN #30 tab 01/06/19 01/15/19 polysaccharide iron complex 150 mg 150 mg PO BID #60 cap 01/09/19 01/15/19 iron capsule Allergies/Adverse Reactions: Allergies Allergy/AdvReac Type Severity Reaction Status Date / Time Penicillins Allergy Severe Anaphylaxis Verified 01/16/19 06:45 Sulfa (Sulfonamide Allergy Intermediate RASH Verified 01/16/19 06:45 Antibiotics) alendronate sodium AdvReac Intermediate SHORTNESS Verified 01/16/19 06:45 [From Fosamax] OF BREATH Review of Systems - Review of Systems All Systems: Reviewed & No Additional Complaints Except as Stated - Respiratory Respiratory: REPORTS: Cough, Sputum - Cardiovascular Cardiovascular: DENIES: Negative System Review, Chest Pain, Edema, Syncope, Palpitations, Orthopnea, Paroxysmal Nocturnal Dyspnea, Other, See HPI - Gastrointestinal Gastrointestinal / Abdominal: DENIES: Negative System Review, Nausea, Vomiting, Diarrhea, Constipation, Abdominal Pain, Bloody Stool, Poor Appetite, Heartburn, Regurgitation, Bloating, Lactose Intolerance, Melena, Bright Red Blood per Rectum, Other, See HPI Exam - Vitals Vital Signs: Vital Signs Temperature 97.2 F Temperature Source Temporal Artery Scan Pulse Rate [Pulse Oximeter] 78 Pulse Rate [pulse ox] 81 Pulse Rate 74 Respiratory Rate 16 Blood Pressure [Left Arm] 136/66 Pulse Ox [pulse ox] 92 Pulse Ox 92 Oxygen Flow Rate [pulse ox] 3 Oxygen Flow Rate 4 Oxygen Delivery Method [pulse Nasal Cannula ox] Oxygen Delivery Method Nasal Cannula Height 5 ft Weight 100 lb 9.6 oz - General General Appearance: No Acute Distress - Neck Neck Exam: Normal Inspection, Full ROM, No Tenderness, No Lymphadenopathy, No Thyromegaly, JVP is not Raised - Respiratory Respiratory Exam: POSITIVE: Decreased Breath Sounds - Cardiovascular Cardiovascular Exam: POSITIVE: RRR, No Murmur, No Clicks, No Gallops, No Rubs, PMI Non-Displaced - GI/Abdominal GI/Abdominal Exam: POSITIVE: Normal Bowel Sounds, Non Tender, Non Distended, Soft, No Masses, No Hepatomegaly, No Splenomegaly, No Organomegaly - Extremities Extremities Exam: POSITIVE: No Clubbing Present, No Edema Present Results - Labs CBC and BMP: 01/15/19 22:20 01/15/19 22:20 Assessment and Plan - Patient Problems (1) COPD exacerbation Current Visit: Yes Status: Acute Comment: Steroids, DuoNeb's Code(s): J44.1 - Chronic obstructive pulmonary disease with (acute) exacerbation (2) Pneumonia Current Visit: Yes Status: Acute Comment: Patient is allergic to penicillin with anaphylactic shock we will use Levaquin she received her first dose in the ER Code(s): J18.9 - Pneumonia, unspecified organism (3) History of atrial fibrillation Current Visit: No Status: Acute Comment: Continue anticoagulation Code(s): Z86.79 - Personal history of other diseases of the circulatory system
[2019-01-16] MEDS ORDERED: Patch Removal PATCH TRANSDERM ONE (14:45)
[2019-01-17] MEDS: methylPREDNISolone 40 MG/1 ML VIAL IVP SCH ×3 (00:56→13:07)
[2019-01-17 04:39] LABS: BASOPHILS # (AUTO) 0.01 10*3/UL; BASOPHILS % (AUTO) 0.1 % (0-1); EOSINOPHILS # (AUTO) 0 10*3/UL; EOSINOPHILS % (AUTO) 0 % (0-8); Hematocrit [HCT] 34.1 % (37.0-47.0); Hemoglobin [HGB] 11.3 g/dL (12.0-16.0); LYMPHOCYTES # (AUTO) 0.75 10*3/uL; MEAN CORPUSCULAR HEMOGLOBIN 30.6 PG (27-31); MEAN CORPUSCULAR HGB CONC 33.1 g/dL (33-37); MEAN CORPUSCULAR VOLUME 92.4 FL (81-99); MEAN PLATELET VOLUME 8.7 FL (7.4-12.2); MONOCYTES # (AUTO) 0.32 10*3/UL (0.3-0.8); MONOCYTES % (AUTO) 4.8 % (5-15); NEUTROPHILS % (AUTO) 83.8 % (50-80); RED BLOOD COUNT 3.69 10^6/uL (4.20-5.40)
[2019-01-17] MEDS: IPRATROPIUM/ALBUTEROL SULFATE 3 ML NEB NEB SCH ×4 (05:07→14:48)
[2019-01-17 05:27] LABS: BLOOD UREA NITROGEN 22 mg/dL (7-22); SERUM ALBUMIN 3.7 g/dL (3.5-4.8)
[2019-01-17 05:44] LABS: PLATELET MORPHOLOGY COMMENT NORMAL MORPHOLOGY (NORM); RBC MORPHOLOGY COMMENT NORMAL MORPHOLOGY (NORM); WBC MORPHOLOGY COMMENT NORMAL MORPHOLOGY (NORM)
[2019-01-17] MEDS: Apixaban Tab 2.5 MG TABLET PO SCH (09:41)
[2019-01-17] MEDS: LORATADINE 10 MG TABLET PO SCH (09:41)
[2019-01-17] MEDS: ASCORBIC ACID Chewable 500 MG TABLET PO SCH (09:41)
[2019-01-17] MEDS ORDERED: ALBUTEROL SULFATE 2.5 MG/3 ML NEB PRN (10:09)
--- NOTE | 2019-01-17 10:20 | PDOC(PROG) ---
Interval History: Patient feels much better, her breathing is slightly improved no chest pain Objective : Data - Labs CBC and BMP: 01/17/19 04:25 01/17/19 04:25 Objective : Exam - General General Appearance: Cooperative - Respiratory Respiratory Exam: Decreased Breath Sounds Additional Respiratory Exam Details: Slightly improved - Cardiovascular Cardiovascular Exam: RRR, No Murmur, No Clicks, No Gallops, No Rubs, PMI Non- Displaced - GI/Abdominal GI/Abdominal Exam: Normal Bowel Sounds, Non Tender, Non Distended, Soft, No Masses, No Hepatomegaly, No Splenomegaly, No Organomegaly - Extremities Extremities Exam: No Clubbing Present, No Edema Present, No Cyanosis Present - Neurological Neurological Exam: Alert Assessment and Plan - Patient Problems (1) COPD exacerbation Current Visit: Yes Status: Acute Comment: Continue steroids and antibiotics patient improved mildly today Code(s): J44.1 - Chronic obstructive pulmonary disease with (acute) exacerbation (2) Pneumonia Current Visit: Yes Status: Acute Comment: Continue IV antibiotics Code(s): J18.9 - Pneumonia, unspecified organism (3) History of atrial fibrillation Current Visit: No Status: Acute Comment: Stable patient had an echo ordered as an outpatient will get it done today Code(s): Z86.79 - Personal history of other diseases of the circulatory system
[2019-01-17] MEDS ORDERED: IBUPROFEN 800 MG TABLET PO ONE (14:22)
[2019-01-17 17:29] VITALS: BP 163/93; RESP 20; TEMP 97.8; O2SAT 97
--- NOTE | 2019-01-17 18:08 | DCSUMMARY ---
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 for 51 years. Has 3 daughters. Retired and lives here in [place], [place]. One of her daughters has some issues with her kidneys. Course of Hospitalization: This very nice 73-year-old female who was admitted left lower lobe pneumonia and COPD exacerbation. Her sats were about 70% on her usual 3 L and she has at home when she was seen in the ER. Blood cultures were drawn was treated with ceftriaxone and Zithromax patient's pulmonary status improved today. Her fentanyl patch was also held. She had echo ordered as an outpatient but since she was in house this was done subsequently had a cough from Dr. Baig that he was seeing a vegetation in the right atrium and recommended [facility] for possible endocarditis and the patient would need a CHAD. Patient will receive that 0.750 Adalid before leaving discussed the case with Dr. Vinson was accepted the patient I also spoke with Dr. Chan's nurse who would let him know. Dr. Vinson with consult cardiology On the date of discharge, the patient was examined: Gen.: [No acute distress, alert, nontoxic] Heart: [Regular rate and rhythm, no murmurs, clicks, gallops, or rubs] Lungs: [Clear to auscultation bilaterally, breathing is nonlabored] Abdomen/GI: [Normal tones on auscultation, soft, nontender, nondistended] Musculoskeletal/extremities: [No clubbing, cyanosis, or edema] Vitals reviewed and are listed below Vital Signs (24 hrs) 01/16/19 19:00 01/16/19 19:20 01/16/19 19:21 Temperature Pulse Rate 88 86 93 Pulse Rate [Pulse Oximeter] Pulse Rate [pulse ox] 113 H Respiratory Rate 26 H 24 Blood Pressure [Left Arm] Blood Pressure [Right Arm] Pulse Ox 88 Pulse Ox [pulse ox] 92 01/16/19 19:37 01/16/19 21:00 01/16/19 23:00 Temperature 98.4 F Pulse Rate 80 Pulse Rate [Pulse Oximeter] 85 Pulse Rate [pulse ox] 82 85 Respiratory Rate 18 Blood Pressure [Left Arm] 148/74 Blood Pressure [Right Arm] Pulse Ox 93 Pulse Ox [pulse ox] 98 97 01/17/19 00:59 01/17/19 01:00 01/17/19 03:00 Temperature 97.6 F Pulse Rate 73 Pulse Rate [Pulse Oximeter] 85 Pulse Rate [pulse ox] 75 75 Respiratory Rate 22 Blood Pressure [Left Arm] 146/82 Blood Pressure [Right Arm] Pulse Ox 97 Pulse Ox [pulse ox] 97 98 01/17/19 04:28 01/17/19 05:00 01/17/19 05:07 Temperature 97.6 F Pulse Rate 110 H Pulse Rate [Pulse Oximeter] 89 Pulse Rate [pulse ox] 83 Respiratory Rate 24 28 H Blood Pressure [Left Arm] 149/82 Blood Pressure [Right Arm] Pulse Ox 90 90 Pulse Ox [pulse ox] 95 01/17/19 05:08 01/17/19 05:09 01/17/19 06:30 Temperature 97.4 F Pulse Rate 81 Pulse Rate [Pulse Oximeter] 91 Pulse Rate [pulse ox] Respiratory Rate 20 24 Blood Pressure [Left Arm] 162/87 Blood Pressure [Right Arm] Pulse Ox 90 94 Pulse Ox [pulse ox] 01/17/19 06:46 01/17/19 07:00 01/17/19 09:00 Temperature Pulse Rate 116 H Pulse Rate [Pulse Oximeter] Pulse Rate [pulse ox] 90 84 Respiratory Rate 24 Blood Pressure [Left Arm] Blood Pressure [Right Arm] Pulse Ox Pulse Ox [pulse ox] 96 96 01/17/19 10:23 01/17/19 10:24 01/17/19 11:00 Temperature Pulse Rate 107 H 104 H 100 Pulse Rate [Pulse Oximeter] Pulse Rate [pulse ox] 100 Respiratory Rate 24 20 Blood Pressure [Left Arm] Blood Pressure [Right Arm] Pulse Ox 92 Pulse Ox [pulse ox] 94 01/17/19 13:00 01/17/19 14:48 01/17/19 14:49 Temperature 98.5 F Pulse Rate 92 92 Pulse Rate [Pulse Oximeter] 96 Pulse Rate [pulse ox] 102 H Respiratory Rate 20 18 18 Blood Pressure [Left Arm] Blood Pressure [Right Arm] 161/84 Pulse Ox 96 93 Pulse Ox [pulse ox] 96 01/17/19 15:00 01/17/19 17:00 Temperature 97.8 F Pulse Rate 97 Pulse Rate [Pulse Oximeter] 102 H Pulse Rate [pulse ox] 98 97 Respiratory Rate 20 Blood Pressure [Left Arm] Blood Pressure [Right Arm] 163/93 Pulse Ox 97 Pulse Ox [pulse ox] 93 93 Assessment and Plan: 1. As per discharge assessments above 2. Disposition: Transfer to [facility] for CHAD accepted by Dr. Vinson 3. Condition on discharge, stable and improved. 4. Diet: regular diet 5. Activities: resume normal activities 6. Follow-Up: 1. [PCP] 2. Transudative MCV for CHAD 7. Medications at the Time of Discharge: Active Medications Generic Name Dose Route Start Last Admin Trade Name Freq PRN Reason Stop Dose Admin Albuterol Sulfate 2.5 mg 01/17/19 10:09 Albuterol Neb Soln 0.083% NEB RTQID PRN Shortness of Breath Albuterol/Ipratropium 3 ml 01/16/19 00:49 01/17/19 14:48 Duoneb Neb Soln NEB 3 ml RTQID THOR Administration Apixaban 2.5 mg 01/16/19 00:49 01/17/19 09:41 Eliquis PO 2.5 mg BID THOR Administration Ascorbic Acid 1,000 mg 01/16/19 09:00 01/17/19 09:41 Vitamin C PO 1,000 mg DAILY THOR Administration Gabapentin 300 mg 01/16/19 00:49 01/16/19 20:36 Neurontin PO 300 mg BEDTIME THOR Administration Sodium Chloride 25 mls @ 200 mls/hr 01/16/19 00:49 Normal Saline 0.9% IV .Post Infusion PRN No Primary IV for Flush ONLY Levofloxacin/Dextrose 750 mg in 150 mls @ 100 mls/hr 01/18/19 09:00 Levaquin (Premix) IV Q48H THOR Vancomycin HCl 0.75 gm/ Sodium 250 mls @ 250 mls/hr 01/17/19 17:53 Chloride IV 01/17/19 18:52 ONCE ONE Lidocaine HCl 0.5 ml 01/16/19 00:49 Lidocaine Buffered Inj SUBD ONCE PRN IV Starts Loratadine 10 mg 01/16/19 09:00 01/17/19 09:41 Claritin PO 10 mg DAILY THOR Administration Meloxicam 15 mg 01/16/19 00:49 Mobic PO DAILY PRN pain, severe Methylprednisolone Sodium Succinate 40 mg 01/16/19 00:49 01/17/19 13:07 Solu-Medrol Inj IVP 40 mg Q6H THOR Administration 8. Time, care, counseling and coordination of care for this discharge is greater than 30 minutes. Exam - Vitals Vital Signs: Vital Signs Temperature 97.8 F Temperature Source Temporal Artery Scan Pulse Rate [Pulse Oximeter] 102 Pulse Rate [pulse ox] 97 Pulse Rate 97 Respiratory Rate 20 Blood Pressure [Right Arm] 163/93 Blood Pressure [Left Arm] 162/87 Pulse Ox [pulse ox] 93 Pulse Ox 97 Oxygen Flow Rate [pulse ox] 5 Oxygen Flow Rate 5 Oxygen Delivery Method [pulse Nasal Cannula ox] Oxygen Delivery Method Nasal Cannula Height 5 ft Weight 104 lb 3.2 oz Patient Problems - Patient Problem List (1) COPD exacerbation Current Visit: Yes Status: Acute Code(s): J44.1 - Chronic obstructive pulmonary disease with (acute) exacerbation Category: Medical (2) Pneumonia Current Visit: Yes Status: Acute Code(s): J18.9 - Pneumonia, unspecified organism Category: Medical (3) History of atrial fibrillation Current Visit: No Status: Acute Code(s): Z86.79 - Personal history of other diseases of the circulatory system Category: Medical
[2019-01-18] MEDS ORDERED: Levofloxacin (Premix) 750 MG/150 ML PIGGYBACK IV SCH (09:00)
== END 2019-01-17 19:00 | disposition short-term general hospital (02) | DRG 194 ==
LOC: ER 22:14 → MED/SURG 01-16 00:07
PROVIDERS: ADMIT Internal Medicine; ATTEND Internal Medicine